=== PATIENT | male | born 1950 | race Caucasian/White ===

== ENCOUNTER 2019-10-05 11:34 | Observation (INO) | payer OTHER ==
--- OUTSIDE RECORDS SUMMARY | 2019-10-05 11:40 | XMS REPORT | Summary of Care ---
:1950 Author Organization [facility] Address [address] [place] [address] Care Team Providers Name Role Phone Kristen Franklin Seth Primary Care Provider Reason for Visit Reason Comments New Patient Establish Care Obstructive Sleep Apnea (Routine) Status Reason Specialty Diagnoses / Referred By Referred To Procedures Contact Contact Closed PN-NEUROLOGY / Diagnoses Other sleep disorders New Sleep Maria Fernanda Payne Strahil Pulmonary Disease Procedures CONSULT/REFERRAL SLEEP CLINIC ADULT PULM NEW SLEEP ASSESSMENT Sia Bernardo [address] [place] [address] Dr RAMIREZ Leonardo [address] [place] [address] Phone: Encounter Details Date Type Department Care Team Description 05/10/2019 Office Visit [facility] Hiren Irving Obstructive sleep Pulmonary Clinic [address] [place] [address] Dr ramsey on CPAP [address] [place] [address] Leonardo Sams 106 (Primary Dx) [address] [place] [address] [place] [phone] [address] [phone] Allergies Active Allergy Reactions Severity Noted Date Comments No Known Drug Allergies Unknown - See comments 09/14/2016 documented as of this encounter (statuses as of 05/10/2019) Medications Medication Sig Dispensed Refills Start Date End Date Status omeprazole Take 20 mg by 0 Active (PRILOSEC) 20 mg mouth daily. capsule tamsulosin (FLOMAX) Take 0.4 mg by 0 Active 0.4 mg 24 hr mouth daily. capsule losartan (COZAAR) Take 50 mg by 0 Active 50 mg tablet mouth daily. metoprolol tartrate Take 25 mg by 0 Active 50 mg tablet mouth 2 (two) times daily. TIOTROPIUM BROMIDE Inhale 2 Puffs 0 Active (SPIRIVA RESPIMAT every 4 (four) INHALE) hours as needed for Other. Cetirizine (ZYRTEC) Take 1 capsule 0 Active 10 mg capsule by mouth 2 (two) times daily. montelukast Take 10 mg by 0 Active (SINGULAIR) 10 mg mouth 2 (two) tablet times daily. CYANOCOBALAMIN/FORTINO Place under 0 Active MAMIDE (B12 SL) the tongue. levalbuterol Inhale 0.5 mL 10 Vial 1 09/15/2016 Active (XOPENEX every 4 (four) CONCENTRATE) 1.25 hours. mg/0.5 mL nebulizer solution finasteride 5 mg Take 5 mg by 0 Active tablet mouth daily. atorvastatin 80 mg Take 80 mg by 0 Active tablet mouth at bedtime. fluticasone Use in each 0 Active propionate 50 nostril daily. mcg/actuation nasal spray primidone Take 50 mg by 0 Discontinued (MYSOLINE) 50 mg mouth 2 (two) 9 tablet times daily. acetaminophen Take 650 mg by 0 Discontinued (TYLENOL) 325 mg mouth every 6 9 tablet (six) hours as needed for Pain (scale 1-3) or Pain (scale 4-6). simvastatin (ZOCOR) Take 40 mg by 0 Discontinued 40 mg tablet mouth at 9 bedtime. BUDESONIDE/FORMOTER Inhale 2 Puffs 0 Discontinued OL FUMARATE 2 (two) times 9 (SYMBICORT INHALE) daily. aspirin 81 mg Take 81 mg by 0 Discontinued chewable tablet mouth daily. 9 ipratropium Inhale 2.5 mL 25 mL 1 09/15/2016 Discontinued (ATROVENT) 0.02 % every 4 (four) 9 nebulizer solution hours as needed for Wheezing or Shortness of Breath. levoFLOXacin Take 1 tablet 5 tablet 0 09/15/2016 Discontinued (LEVAQUIN) 500 mg by mouth every 9 tablet 24 (twenty-four) hours. predniSONE Take 1 tablet 5 tablet 0 09/15/2016 Discontinued (DELTASONE) 50 mg by mouth daily. 9 tablet documented as of this encounter (statuses as of 05/10/2019) Active Problems Problem Noted Date COPD exacerbation 09/15/2016 Obesity (BMI 30-39.9) 09/15/2016 COPD (chronic obstructive pulmonary disease) documented as of this encounter (statuses as of 05/10/2019) Social History Tobacco Use Types Packs/Day Years Used Date Former Smoker Smokeless Tobacco: Never Used Alcohol Use Drinks/Week oz/Week Comments Yes 0 Standard drinks or equivalent 0.0 Sex Assigned at Date Recorded Not on file Job Start Date Occupation Industry Not on file Not on file Not on file Travel History Travel Start Travel End No recent travel history available. documented as of this encounter Last Filed Vital Signs Vital Sign Reading Time Taken Comments Blood Pressure 136/79 05/10/2019 10:45 AM CDT Pulse 54 05/10/2019 10:45 AM CDT Temperature - - Respiratory Rate 19 05/10/2019 10:45 AM CDT Oxygen Saturation 96% 05/10/2019 10:45 AM CDT Inhaled Oxygen Concentration - - Weight 114.4 kg (252 lb 3.2 oz) 05/10/2019 10:45 AM CDT Height 177.8 cm (5' 10") 05/10/2019 10:45 AM CDT Body Mass Index 36.19 05/10/2019 10:45 AM CDT documented in this encounter Progress Notes Hiren Irving - 05/10/2019 10:30 AM CDTReason for Clinic Visit: The patient is currently under Positive Airway Pressure (PAP) treatment forObstructive Sleep Apnea (GERARD). Chief Complaint: Obstructive Sleep Apnea History of Present Illness: The patient usually goes to bed around 9-11 p.m. and wakes up around 8:30-10:30 a.m. It takes 15 minutes on average to fall asleep. During the night, the patient wakes up 2-3 times to go to the restroom. The patient takes occasional naps during the day. These naps usually last 1-3 hours each. The patient does not suffer from irresistible sleep attacks during the day. The patient does not experience sudden loss of muscle tone when emotional or excited. The patient does not report vivid dream-like images and loss of muscle tone when falling asleep and upon awakening. [place] Sleepiness Scale score: 4 (0-24). Social History: The patient does not smoke cigarettes. The patient occasionally drinks alcoholic beverages. Caffeinated beverages consumption: 1-2 per day. Family History: The family history is positive for snoring in blood relatives. Physical Examination: 1) Vital signs: as noted above. 2) General: the patient is pleasant, well developed, and in NAD. 3) Skin: there are no rashes, edema, abnormal pigmentation, or pathological outgrowths. 4) Head: there are no skull or hair deformities, nor pathological facial asymmetry. 5) Eyes: pupils are equal, round, and reactive to light; extraocular movements are intact, conjugate , and unrestricted, without strabismus or nystagmus. 6) ENT: oropharynx reveals low set soft palate and elongateduvula; the patient displays a good sniff through both the right and left nostril. 7) Neck: there areno distended veins or enlarged lymph nodes bilaterally. 8) Back: straight; spine - without pathological curvatures. 9) Bilateral lower extremities are without edema or discoloration. 10) Neurological -patient is alert, oriented to time, place, and self, and answers questions appropriately; there are no cranial nerves abnormalities; upper extremities movements are well coordinated, without dismetria or tremors; the gait is balanced, without ataxia, postural or dynamic abnormalities. Review of Systems: 1)Respiratory: positive for snoring and witnessed apneas; 2)Cardiovascular: positive for hypertension; 3)Endocrine/Metabolic: positive for dyslipidemia; 4) Digestive: negative for abnormalities; 5)Urinary: positive for nocturia; 6) Skeletal: no skeletal abnormalities detected; 7)Muscular: negative for muscular abnormalities; 8)Nervous: no neurological or psychological abnormalities; 9) Integumentary: novisible or reported skin or hair abnormalities; 10)Reproductive : no reproductive abnormalities noted; 11)Immune/Lymphatic/Allergy: positive for respiratory allergies. Sleep Study Results and PAP Compliance: The patient was diagnosed with Obstructive Sleep Apnea Syndrome and placed on Positive Airway Pressure (PAP) treatment at the [place] about 1.5 years ago. The patientcomplains of ill fitting mask which prevents him from using his CPAP machine regularly. Diagnosis: Obstructive Sleep Apnea Syndrome ill fitting CPAP mask G47.33 Recommendations and Patient Education: The condition of Obstructive Sleep Apnea was discussed with the patient and the possible consequences of untreated sleep apnea regarding quality of sleep, daytime alertness, and cardiovascular complications were underlined. All of patients questions were welcomed and thoroughly answered. The patient was encouraged to re-start regular PAP treatment at home. A DME order for better fitting mask was also issued. Additional time was spent discussing sleep hygiene including: regular bedtime and wake-up times; enough sleep hours; going to bed only when sleepy; using bed for the sole purpose of sleeping; avoidanceof: 1) caffeinated and alcoholic beverages, 2) strenuous cognitive activity, or 3) heavy meals in the evening. The patient reported efforts to implement these sleep hygiene measures at home and had some additional questions which were answered in detail. A follow up visit as needed was also recommended. The patient was instructed to contact us in case of any further questions, concerns, problems, or side effects of PAP treatment. documented in this encounter Plan of Treatment Date Type Specialty Care Team Description 08/16/2019 Office Visit Pulmonary Disease Hiren Irving [address] [place] [address] [place] [address] [phone] Health Maintenance Due Date Last Done Comments HEPATITIS C (HCV) SCREEN 1950 DTaP,Tdap,and Td Vaccines (1 - Tdap) 1967 COLONOSCOPY 1998 Zoster Recombinant Vaccine (SHINGRIX) (1 of 2) 1998 LUNG CANCER SCREEN: Recommended for age 55-80 with 30 + 2003 pack year history Medicare Wellness Visit 2013 PNEUMOCOCCAL VACCINES 65+ (1 of 2 - PCV13) 2013 INFLUENZA VACCINE 05/28/2019 documented as of this encounter Results Not on filedocumented in this encounter Visit Diagnoses Diagnosis Obstructive sleep apnea on CPAP - Primary Obstructive sleep apnea (adult) (pediatric) documented in this encounter Insurance Payer Benefit Plan / Subscriber ID Effective Phone Address Type Group Dates [employer] [id number] 2018-Pre HMO/PPO/ ADMINISTRATION ADMINISTRATION sent POS documented as of this encounter
--- OUTSIDE RECORDS SUMMARY | 2019-10-05 11:40 | XMS REPORT | Summary of Care ---
:1950 Author Organization [facility] Address [address] [place] [address] Care Team Providers Name Role Phone Kristen Franklin Seth Primary Care Provider Reason for Visit Reason Comments New Patient Establish Care Obstructive Sleep Apnea (Routine) Status Reason Specialty Diagnoses / Referred By Referred To Procedures Contact Contact Closed PN-NEUROLOGY / Diagnoses Other sleep disorders New Sleep Maria Fernanda Payne Strahil Pulmonary Disease Procedures CONSULT/REFERRAL SLEEP CLINIC ADULT PULM NEW SLEEP ASSESSMENT Sia Bernardo [address] [place] [address] Dr RAMIREZ Leonardo [address] [place] [address] Phone: Encounter Details Date Type Department Care Team Description 05/10/2019 Office Visit [facility] Hiren Irving Obstructive sleep Pulmonary Clinic [address] [place] [address] Dr ramsey on CPAP [address] [place] [address] Leonardo Sams 106 (Primary Dx) [address] [place] [address] [place] [phone] [address] [phone] Allergies Active Allergy Reactions Severity Noted Date [...] tone when falling asleep and upon awakening. [place] Sleepiness Scale score: 4 (0-24). Social History: [...] Positive Airway Pressure (PAP) treatment at the [place] about 1.5 years ago. The patientcomplains of [...] documented in this encounter Plan of Treatment Health Maintenance Due Date Last Done Comments [...] Phone Address Type Group Dates [employer] [id number] 2018-Pre HMO/PPO/ ADMINISTRATION ADMINISTRATION sent POS documented as of this encounter
--- OUTSIDE RECORDS SUMMARY | 2019-10-05 11:40 | XMS REPORT | Summary of Care ---
:1950 [address] [facility] - Health Address [address] [place] [address] Care Team Providers Name Role Phone Kristen Franklin Primary Care Provider Encounter Details Date Type Department Care Team Description 05/10/[address] [facility] Doctor Unassigned, No [address] [facility] [place] [address] [address] [place] [address] Allergies Active Allergy Reactions Severity Noted Date Comments No Known Drug Allergies Unknown - See comments 09/14/2016 documented as of this encounter (statuses as of 05/10/2019) Medications Medication Sig Dispensed Refills Start Date End Date Status omeprazole (PRILOSEC) Take 20 mg by 0 Active 20 mg capsule mouth daily. tamsulosin (FLOMAX) 0.4 Take 0.4 mg by 0 Active mg 24 hr capsule mouth daily. losartan (COZAAR) 50 mg Take 50 mg by 0 Active tablet mouth daily. metoprolol tartrate 50 Take 25 mg by 0 Active mg tablet mouth 2 (two) times daily. TIOTROPIUM BROMIDE Inhale 2 Puffs 0 Active (SPIRIVA RESPIMAT every 4 (four) INHALE) hours as needed for Other. Cetirizine (ZYRTEC) 10 Take 1 capsule by 0 Active mg capsule mouth 2 (two) times daily. montelukast (SINGULAIR) Take 10 mg by 0 Active 10 mg tablet mouth 2 (two) times daily. CYANOCOBALAMIN/COBAMAMI Place under the 0 Active DE (B12 SL) tongue. levalbuterol (XOPENEX Inhale 0.5 mL 10 Vial 1 09/15/2016 Active CONCENTRATE) 1.25 every 4 (four) mg/0.5 mL nebulizer hours. solution finasteride 5 mg tablet Take 5 mg by 0 Active mouth daily. atorvastatin 80 mg Take 80 mg by 0 Active tablet mouth at bedtime. fluticasone propionate Use in each 0 Active 50 mcg/actuation nasal nostril daily. spray documented as of this encounter (statuses as [...] of this encounter Last Filed Vital Signs Not on filedocumented in this encounter Plan of Treatment Date Type Specialty Care Team Description 08/16/2019 Office Visit Pulmonary Disease Hiren Irving [address] Patterson [address] [place] [address] [phone] Health Maintenance Due Date Last Done Comments [...] VACCINE 05/28/2019 documented as of this encounter Procedures Procedure Name Priority Date/Time Associated Diagnosis Comments DME/SUPPLY JUSTIFICATION Routine 05/10/2019 12:01 AM CDT documented in this encounter Results Not on filedocumented in this encounter Insurance Payer Benefit Plan / Subscriber ID Effective Phone Address Type Group Dates [place] [place] [id number] 2015-Pre [phone] Medicare PLUS/SELECTCARE PLUS/SELECTCARE [id number] [phone] [place], [place] [phone] [facility] [id number] 2015-Pre Medicare - MANAGED MEDICARE ADV HMO sent Adv HMO MEDICARE [employer] [id number] 2018-Pr HMO/PPO/PO ADMINISTRATION ADMINISTRATION esent S documented as of this encounter
--- OUTSIDE RECORDS SUMMARY | 2019-10-05 11:40 | XMS REPORT | Summary of Care ---
:1950 Author Organization [facility] Address [address] [place] [address] Care Team Providers Name Role Phone Kristen Franklin Seth Primary Care Provider Reason for Visit Reason Comments New Patient Establish Care Obstructive Sleep Apnea (Routine) Status Reason Specialty Diagnoses / Referred By Referred To Procedures Contact Contact Closed PN-NEUROLOGY / Diagnoses Other sleep disorders New Sleep Maria Fernanda Payne Strahil Pulmonary Disease Procedures CONSULT/REFERRAL SLEEP CLINIC ADULT PULM NEW SLEEP ASSESSMENT Sia Bernardo [address] [place] [address] Dr RAMIREZ Leonardo [address] [place] [address] Phone: Encounter Details Date Type Department Care Team Description 05/10/2019 Office Visit [facility] Hiren Irving Obstructive sleep Pulmonary Clinic [address] [place] [address] Dr ramsey on CPAP [address] [place] [address] Leonardo Sams 106 (Primary Dx) [address] [place] [address] [place] [phone] [address] [phone] Allergies Active Allergy Reactions Severity Noted Date [...] tone when falling asleep and upon awakening. [place] Sleepiness Scale score: 4 (0-24). Social History: [...] Positive Airway Pressure (PAP) treatment at the [place] about 1.5 years ago. The patientcomplains of [...] Phone Address Type Group Dates [employer] [id number] 2018-Pre HMO/PPO/ ADMINISTRATION ADMINISTRATION sent POS documented as of this encounter
--- OUTSIDE RECORDS SUMMARY | 2019-10-05 11:40 | XMS REPORT ---
:1950 Author Organization [facility] Address [address] [place] [address] Dr. Sánchez [address] [place] [address] Care Team Providers Name Role Phone Unavailable Unavailable Unavailable Problems This patient has no known problems. Allergies, Adverse Reactions, Alerts This patient has no known allergies or adverse reactions. Medications This patient has no known medications.
--- NOTE | 2019-10-05 12:16 | RAD REPORT ---
EXAM DESCRIPTION: CT - Head Brain Wo Cont - 10/05/2019 12:05 pm CLINICAL HISTORY: Headache, near syncope COMPARISON: March 2017 TECHNIQUE: Axial 5 mm thick images of the head were obtained without IV contrast. All CT scans are performed using dose optimization technique as appropriate and may include automated exposure control or mA/KV adjustment according to patient size. FINDINGS: No intracranial hemorrhage, mass, edema or shift of mid-line structures. No acute infarcti on changes seen. No cortical edema or sulcal effacement. Atrophy and chronic ischemic changes are pre sent not substantially different from comparison. Since the prior study, the patient has had deep basilia rostimulator wires placed. Ventricles are in proportion to volume loss. Mastoid air cells and visualized portions of the paranasal sinuses are clear. No acute bony findings. IMPRESSION: Negative non-contrast CT head examination for acute finding. Atrophy and chronic ischemic change similar to 2017.
[2019-10-05 12:29] LABS: Absolute Lymphocytes (CBC) 2.6 K/uL (0.7-4.9); Basophils % 0.8 % (0-1.3); Hematocrit 46.8 % (39.6-49.0); Lymphocytes % 38.4 % (15.3-44.8); MPV 7.5 fL (7.6-11.3); RBC Red Blood Cell Count 5.33 M/uL (4.33-5.43)
--- NOTE | 2019-10-05 12:31 | RAD REPORT ---
EXAM DESCRIPTION: RAD - Chest Single View - 10/05/2019 12:10 pm CLINICAL HISTORY: Chest pain and pressure, hypotension COMPARISON: March 2017 TECHNIQUE: AP portable chest image was obtained 1203 hours . FINDINGS: Mild chronic underlying interstitial lung changes are present. Patient has extensive calci fied pleural plaquing and probable calcified lung parenchymal nodules. Pattern is not clearly differe nt. No failure or volume overload. Since prior imaging a neurostimulator battery pack has been placed over the upper left chest. Heart a nd vasculature are normal. No measurable pleural effusion and no pneumothorax. No acute bony abnormal ity seen. No acute aortic findings suspected. IMPRESSION: No acute cardiopulmonary process. Chronic changes are detailed in the body of the report and are similar to the comparison.
[2019-10-05 12:32] LABS: Protime INR 0.94
[2019-10-05 12:49] LABS: ALT/SGPT 33 U/L (12-78); AST/SGOT 23 U/L (15-37); Albumin 3.9 g/dL (3.4-5.0); Alkaline Phosphatase 79 U/L (45-117); BUN Blood Urea Nitrogen 22 mg/dL (7-18); Bicarbonate 26 mmol/L (21-32); Bilirubin Direct 0.1 mg/dL (0-0.2); Bilirubin Total 0.4 mg/dL (0.2-1.0); Glucose Level 105 mg/dL (74-106); Magnesium 2.5 mg/dL (1.8-2.4); NT PRO-BNP 50 pg/mL (<125); Protein, Total 7.7 g/dL (6.4-8.2); Sodium Level 138 mmol/L (136-145); Troponin (Emerg Dept Use Only) < 0.02 ng/mL (0.0-0.045)
[2019-10-05] MEDS ORDERED: NA CHLORIDE 0.9% 500 ML ONE (12:59)
[2019-10-05] MEDS ORDERED: ASPIRIN EC 81 MG TAB PO ONE (13:08)
--- NOTE | 2019-10-05 13:21 | EKG ---
Test Date: 2019-10-05 Test Time: 11:54:50 Pca: ASHLEY MEASUREMENT RESULTS: Intervals: Rate: 67 CA: 116 QRSD: 82 QT: 414 QTc: 437 [place]: P: CA: 116 QRS: 28 T: 7 INTERPRETIVE STATEMENTS: Normal sinus rhythm Junctional ST depression, probably normal Borderline ECG Compared to ECG 04/13/2017 10:36:22 ST (T wave) deviation now present Sinus bradycardia no longer present Electronically Signed On 10-05-19 13:20:45 [employer] MANAGER by Jose G Santiago
--- NOTE | 2019-10-05 13:35 | EDPHYS ---
Physician Documentation [facility] Name: Cruzito Sims Jr Age: 69 yrs Sex: Male : 1950 Arrival Date: 10/05/2019 Time: 11:39 Bed 5 Private MD: ED Physician Balbir López HPI: 10/05 11:49 This 69 yrs old Male presents to ER via EMS with complaints of Chest Pain, cp Blood Pressure Problem. 11:49 The patient or guardian reports chest pain that is located primarily in the substernal cp area. 11:49 Onset: this morning. The pain does not radiate. Associated signs and symptoms: cp Pertinent negatives: abdominal pain, diaphoresis, dizziness, lower extremity pain, lower extremity swelling, palpitations, vomiting. The chest pain is described as a pressure. Duration: The patient or guardian reports a single episode, that is still ongoing, but improving. Historical: - Allergies: 11:47 Codeine; bp - Home Meds: 11:47 metoprolol tartrate 50 mg Oral tab 1 tab 2 times per day [Active]; aspirin 81 mg Oral bp chew 1 tab once daily [Active]; Symbicort inhalation 2 times per day [Active]; atorvastatin 80 mg Oral tab 0.5 tab nightly [Active]; Spiriva with HandiHaler 18 mcg inhalation CpDv 1 cap once daily [Active]; - PMHx: 11:47 Aneurysm; Asthma; Hypertension; COPD; Hyperlipidemia; Hepatitis; bp - Immunization history:: Adult Immunizations up to date. - Social history:: Smoking status: Patient/guardian denies using tobacco. - Ebola Screening: : No symptoms or risks identified at this time. ROS: 12:00 Constitutional: Negative for body aches, chills, fever, poor PO intake. cp 12:00 Eyes: Negative for injury, pain, redness, and discharge. cp 12:00 Cardiovascular: Positive for chest pain, Negative for edema, palpitations. 12:00 Respiratory: Negative for cough, shortness of breath, wheezing. 12:00 Abdomen/GI: Negative for abdominal pain, nausea, vomiting, and diarrhea, black/tarry stool, rectal bleeding. 12:00 Back: Negative for pain at rest, pain with movement, radiated pain. 12:00 Skin: Negative for rash. 12:00 Neuro: Negative for altered mental status, headache, syncope, weakness. 12:00 All other systems are negative. Exam: 12:15 ECG was reviewed by the Attending Physician. cp 12:20 Constitutional: The patient appears in no acute distress, alert, awake, cp non-diaphoretic, non-toxic, well developed, well nourished. 12:20 Head/Face: Normocephalic, atraumatic. cp 12:20 Eyes: Periorbital structures: appear normal, Conjunctiva: normal, no exudate, no injection, Sclera: no appreciated abnormality, Lids and lashes: appear normal, bilaterally. 12:20 ENT: External ear(s): are unremarkable, Nose: is normal, Mouth: is normal, Posterior pharynx: is normal, airway is patent, no erythema, no exudate. 12:20 Neck: ROM/movement: is normal, is supple, without pain, no range of motions limitations, no nuchal rigidity. 12:20 Chest/axilla: Inspection: normal, Palpation: is normal, no crepitus, no tenderness. 12:20 Cardiovascular: Rate: normal, Rhythm: regular, Edema: is not appreciated, JVD: is not appreciated. 12:20 Respiratory: the patient does not display signs of respiratory distress, Respirations: normal, no use of accessory muscles, no retractions, no splinting, no tachypnea, labored breathing, is not present, Breath sounds: are clear throughout, no decreased breath sounds, no stridor, no wheezing. 12:20 Abdomen/GI: Inspection: abdomen appears normal, Palpation: abdomen is soft and non-tender, in all quadrants. 12:20 Back: pain, is absent, ROM is normal. 12:20 Skin: no rash present. 12:20 Neuro: Orientation: to person, place \T\ time. Mentation: is normal, Motor: moves all fours, strength is normal. Vital Signs: 11:52 BP 106 / 78; Pulse 69; Resp 16; Temp 98; Pulse Ox 95% on R/A; Weight 112.49 kg; Height bp 5 ft. 10 in. (177.80 cm); 13:00 BP 94 / 69; Pulse 68; Resp 15; Pulse Ox 97% ; bp 14:55 BP 113 / 98; Pulse 68; Resp 16; Pulse Ox 98% ; bp 15:50 BP 137 / 87; Pulse 81; Resp 16; Temp 98; Pulse Ox 95% ; bp 11:52 Body Mass Index 35.58 (112.49 kg, 177.80 cm) bp MDM: 11:40 Patient medically screened. cp 12:30 Differential diagnosis: abnormal EKG, acute myocardial infarction, acute pericarditis, cp pancreatitis, pulmonary embolus, stable angina, thoracic aortic disection, unstable angina. 13:30 The patient was given aspirin in the Emergency Department. cp 13:30 Data reviewed: vital signs, nurses notes, lab test result(s), EKG, radiologic studies, cp plain films. Test interpretation: by ED physician or midlevel provider: ECG, plain radiologic studies, chest xray negative for infiltrates. Counseling: I had a detailed discussion with the patient and/or guardian regarding: the historical points, exam findings, and any diagnostic results supporting the discharge/admit diagnosis, lab results, radiology results. Response to treatment: the patient's symptoms have mildly improved after treatment, and as a result, I will admit patient. Physician consultation: Gold Barajas MD was called at 13:30, was contacted at 13:30, regarding admission, to the telemetry unit. patient's condition. 10/05 11:40 Order name: Basic Metabolic Panel; Complete Time: 13:02 cp 10/05 13:02 Interpretation: Normal except: BUN 22; CRE 1.52; GFR 45. cp 10/05 11:40 Order name: CBC with Diff; Complete Time: 12:47 cp 10/05 12:47 Interpretation: Normal except: MPV 7.5; EOSINOPHIL % 4.5. cp 10/05 11:40 Order name: LFT's; Complete Time: 13:02 cp 10/05 13:02 Interpretation: Normal except: GLOB 3.8; A/G 1.0. cp 10/05 11:40 Order name: Magnesium; Complete Time: 13:02 cp 10/05 11:40 Order name: NT PRO-BNP; Complete Time: 13:02 cp 10/05 11:40 Order name: PT-INR; Complete Time: 12:47 cp 10/05 12:48 Interpretation: Reviewed. cp 10/05 11:40 Order name: Troponin (emerg Dept Use Only); Complete Time: 13:02 cp 10/05 13:02 Interpretation: Within normal limits. cp 10/05 11:40 Order name: XRAY Chest (1 view); Complete Time: 12:47 cp 10/05 11:40 Order name: EKG; Complete Time: 11:40 cp 10/05 11:40 Order name: CT Head Brain wo Cont; Complete Time: 12:47 cp 10/05 11:51 Order name: Urine Microscopic Only cp 10/05 11:51 Order name: Lactate; Complete Time: 12:47 cp 10/05 11:40 Order name: Cardiac monitoring; Complete Time: 12:00 cp 10/05 11:40 Order name: EKG - Nurse/Tech; Complete Time: 11:55 cp 10/05 11:40 Order name: IV Saline Lock; Complete Time: 12:31 cp 10/05 11:40 Order name: Labs collected and sent; Complete Time: 12:31 cp 10/05 11:40 Order name: O2 Per Protocol; Complete Time: 11:56 cp 10/05 11:40 Order name: O2 Sat Monitoring; Complete Time: 11:56 cp 10/05 14:47 Order name: Diet Regular; Complete Time: 14:47 cp EC:15 Rate is 67 beats/min. Rhythm is regular. UT interval is normal. QRS interval is normal. cp QT interval is normal. Interpreted by me. Reviewed by me. Administered Medications: 12:10 Drug: NS 0.9% 500 ml Route: IV; Rate: bolus; Site: right antecubital; bp 15:56 Follow up: IV Status: Completed infusion; IV Intake: 500ml bp 13:00 Drug: Aspirin Chewable Tablet 324 mg Route: PO; bp 15:56 Follow up: Response: No adverse reaction bp Disposition: 16:41 Co-signature as Attending Physician, Balbir López MD I agree with the assessment and [facility] plan of care. Disposition: 10/05/19 13:34 Hospitalization ordered by Gold Barajas for Observation. Preliminary diagnosis is Chest pain, unspecified. - Bed requested for Telemetry/MedSurg (observation). - Status is Observation. bp - Condition is Stable. - Problem is new. - Symptoms have improved. UTI on Admission? No Signatures: Dispatcher [employer] Balbir Saenz MD MD cha Page, Corey, PA PA cp Chago Gloria, RN RN bp Cuellar, Maria M eb Corrections: (The following items were deleted from the chart) 14:03 13:34 Hospitalization Ordered by Gold Barajas MD for Observation. Preliminary diagnosis eb is Chest pain, unspecified. Bed requested for Telemetry/MedSurg (observation). Status is Observation. Condition is Stable. Problem is new. Symptoms have improved. UTI on Admission? No. cp 15:11 14:03 10/05/2019 13:34 Hospitalization Ordered by Gold Barajas MD for Observation. eb Preliminary diagnosis is Chest pain, unspecified. Bed requested for Telemetry/MedSurg (observation). Status is Observation. Condition is Stable. Problem is new. Symptoms have improved. UTI on Admission? No. eb 16:09 15:11 10/05/2019 13:34 Hospitalization Ordered by Gold Barajas MD for Observation. bp Preliminary diagnosis is Chest pain, unspecified. Bed requested for Telemetry/MedSurg (observation). Status is Observation. Condition is Stable. Problem is new. Symptoms have improved. UTI on Admission? No. eb
--- NOTE | 2019-10-05 13:35 | ER ---
Nurse's Notes [facility] Name: Cruzito Sims Jr Age: 69 yrs Sex: Male : 1950 Arrival Date: 10/05/2019 Time: 11:39 Bed 5 Private MD: Diagnosis: Chest pain, unspecified Presentation: 10/05 11:39 Presenting complaint: EMS states: CHEST PRESSURE AND HYPOTENSION AT [facility]. bp Transition of care: [facility]. Onset of symptoms is unknown. Risk Assessment: Do you want to hurt yourself or someone else? Patient reports no desire to harm self or others. Initial Sepsis Screen: Does the patient meet any 2 criteria? No. Patient's initial sepsis screen is negative. Does the patient have a suspected source of infection? No. Patient's initial sepsis screen is negative. Care prior to arrival: None. 11:39 Method Of Arrival: EMS: [facility] bp 11:39 Acuity: MAURA 2 bp Triage Assessment: 11:47 General: Appears in no apparent distress. uncomfortable, Behavior is cooperative, bp appropriate for age, anxious. Pain: Complains of pain in chest. EENT: No deficits noted. Neuro: No deficits noted. Cardiovascular: Patient's skin is warm and dry. Respiratory: Airway is patent Respiratory effort is even, labored, Respiratory pattern is regular, symmetrical, GI: No signs and/or symptoms were reported involving the gastrointestinal system. : No signs and/or symptoms were reported regarding the genitourinary system. Derm: No deficits noted. Derm: No deficits noted. Musculoskeletal: No deficits noted. Historical: - Allergies: 11:47 Codeine; bp - Home Meds: 11:47 metoprolol tartrate 50 mg Oral tab 1 tab 2 times per day [Active]; aspirin 81 mg Oral bp chew 1 tab once daily [Active]; Symbicort inhalation 2 times per day [Active]; atorvastatin 80 mg Oral tab 0.5 tab nightly [Active]; Spiriva with HandiHaler 18 mcg inhalation CpDv 1 cap once daily [Active]; - PMHx: 11:47 Aneurysm; Asthma; Hypertension; COPD; Hyperlipidemia; Hepatitis; bp - Immunization history:: Adult Immunizations up to date. - Social history:: Smoking status: Patient/guardian denies using tobacco. - Ebola Screening: : No symptoms or risks identified at this time. Screenin:57 Abuse screen: Denies threats or abuse. Denies injuries from another. Nutritional bp screening: No deficits noted. Tuberculosis screening: No symptoms or risk factors identified. Fall Risk None identified. Assessment: 10:50 General: SEE TRIAGE NOTE. bp 10:50 Pain: Pain radiates to back Pain began 1 day ago. bp 12:00 Reassessment: ALL CURRENT ORDERS COMPLETE, RESULTS PENDING. bp 13:00 Reassessment: PROVIDER AT B/S FOR PT RE-EVAL. VS STABLE ON MONITOR. bp 14:56 Reassessment: ADMIT IN PROCESS. PT ASYMPTOMATIC AT THIS TIME. bp Vital Signs: 11:52 BP 106 / 78; Pulse 69; Resp 16; Temp 98; Pulse Ox 95% on R/A; Weight 112.49 kg; Height bp 5 ft. 10 in. (177.80 cm); 13:00 BP 94 / 69; Pulse 68; Resp 15; Pulse Ox 97% ; bp 14:55 BP 113 / 98; Pulse 68; Resp 16; Pulse Ox 98% ; bp 15:50 BP 137 / 87; Pulse 81; Resp 16; Temp 98; Pulse Ox 95% ; bp 11:52 Body Mass Index 35.58 (112.49 kg, 177.80 cm) bp ED Course: 11:39 Patient arrived in ED. bp 11:39 Balbir Garcia PA is PHCP. cp 11:39 Balbir López MD is Attending Physician. cp 11:40 Triage completed. bp 11:52 Arm band placed on. bp 11:54 Chago Gloria, RN is Primary Nurse. bp 11:57 Patient has correct armband on for positive identification. Placed in gown. Bed in low bp position. Call light in reach. Side rails up X2. monitoring specialist on. Pulse ox on. NIBP on. 12:05 CT Head Brain wo Cont In Process Unspecified. EDMS 12:10 XRAY Chest (1 view) In Process Unspecified. EDMS 12:15 Inserted saline lock: 22 gauge in right antecubital area, using aseptic technique. kj1 Blood collected. 12:19 Initial lab(s) drawn, by operations label clerk, sent to lab. kj1 13:34 Gold Barajas MD is Hospitalizing Provider. cp 15:55 No provider procedures requiring assistance completed. Patient admitted, IV remains in bp place. Patient maintains SpO2 saturation greater than 95% on room air. Administered Medications: 12:10 Drug: NS 0.9% 500 ml Route: IV; Rate: bolus; Site: right antecubital; bp 15:56 Follow up: IV Status: Completed infusion; IV Intake: 500ml bp 13:00 Drug: Aspirin Chewable Tablet 324 mg Route: PO; bp 15:56 Follow up: Response: No adverse reaction bp Intake: 15:56 IV: 500ml; Total: 500ml. bp Outcome: 13:34 Decision to Hospitalize by Provider. cp 15:54 Admitted to Tele accompanied by tech, family with patient, via wheelchair, room 428, bp with chart, Report called to JAY JAY NICHOLS 15:54 Condition: stable 15:54 Instructed on the need for admit. 16:09 Patient left the ED. bp Signatures: Dispatcher [employer] EDMS Balbir Garcia PA PA cp Peltier, Brian, RN RN bp Lesly Cruz kj1
[2019-10-05] MEDS ORDERED: NITROGLYCERIN 0.4 MG/TAB SL PRN (16:34)
[2019-10-05] MEDS ORDERED: ACETAMINOPHEN 500 MG TAB PO PRN (16:34)
[2019-10-05] MEDS: NA CHLORIDE 0.9% 1,000 ML IV SCH (18:01)
[2019-10-05] MEDS: ENOXAPARIN 40 MG/0.4 ML SQ SCH (18:02)
[2019-10-05] MEDS ORDERED: FLUOCINONIDE TOP PRN (18:32)
[2019-10-05] MEDS ORDERED: HOME MED 1 EA UNK (Budesonide/Formoterol Fumarate [Symbicort 160-4.5 Mcg Inhaler] 2 PUFF) IH PRN (18:32)
[2019-10-05] MEDS ORDERED: APPL TOP PRN (18:32)
[2019-10-05] MEDS ORDERED: EMOLLIENT BASE TOP PRN (18:32)
[2019-10-05] MEDS: ALBUTEROL 2.5 MG/3 ML NEB SOL NEB SCH (20:00)
[2019-10-05] MEDS ORDERED: DIGOXIN 0.25 MG/ML AMP IV ONE (20:00)
[2019-10-05] MEDS: IPRATROPIUM BROM 0.5MG/2.5ML NEB SCH (20:00)
[2019-10-05] MEDS ORDERED: ATORVASTATIN 40 MG TAB PO SCH (21:00)
[2019-10-05] MEDS ORDERED: METOPROLOL TAR 25 MG TAB PO SCH (21:00)
[2019-10-05] MEDS ORDERED: AZELASTINE NASAL SPRAY 30 ML NAS SCH (21:00)
[2019-10-05] MEDS: FLUTICASONE PROPIONATE IH SCH (21:00)
[2019-10-05] MEDS ORDERED: SOTALOL HCL 80 MG TAB PO ONE (21:09)
[2019-10-05] MEDS: TAMSULOSIN 0.4 MG SR CAP PO SCH (21:20)
--- NOTE | 2019-10-06 00:27 | HP ---
Date of Admission: 10/05/2019 Chief Complaint: Hypotension, chest pressure. Primary Care Physician: KELLY and Dr. Esposito. Consultants: Dr. Santiago with Cardiology. Code Status: Full code. History Of Present Illness: Patient is a 69-year-old male with past medical history of hypertension, COPD, benign prostatic hyperplasia, hyperlipidemia, GERD, history of aortic aneurysm, who was in his usual state of health until night prior to admission when the patient had what he reported as some d iscomfort in his lower chest and abdomen area, felt like gas pressure. Patient ran out of his losart an, took his 's medications who is also on losartan and the following morning took another dose, total of 100 mg within approximately 12 hours. Patient went to his regularly scheduled appointment a t the [facility], he was found to be hypotensive and was referred to the ER for further evaluation. Patient' s blood pressure was 70 systolic at the [facility]. The patient did not have any syncopal type episodes. Hi s chest pressure has improved since last night. No nausea, vomiting, fevers, chills, diaphoresis. N o aggravating factors. Patient's workup revealed negative cardiac enzyme and no ST-elevation on the EKG. Blood pressure continued to remain in the low 90s over 60s. He was given IV fluids 0.5 L bolus and then referred for admission. When seen in the ER, he was awake, alert, and oriented x3, in some mild distress. Past Medical History: Prediabetic, hypertension, COPD, benign prostatic hyperplasia, hyperlipidemia, GERD, aortic aneurysm, being monitored, essential tremor status post stimulator placement, history o f hepatitis. Past Surgical History: Has had stimulator put in for his tremor, has broken multiple bones including shoulder. Allergies: CODEINE. Medications: List reviewed. Social History: Patient quit tobacco use 21 years ago. Does drink alcohol 3-4 drinks per week. Nirmala mckay is , has good social support, is a retired member of the armed forces. Family History: Father had cancer. Grandfather had heart disease. No premature MIs. Review of Systems: Ten-point systems reviewed, negative except as per HPI. Physical Examination: Vital Signs: Blood pressure 94/69, pulse 68, respirations 15, O2 97% on room air, temperature 98, BM I 35. General: Awake, alert, oriented x3. Elderly male, in some mild distress, obese. HEENT: Normocephalic, atraumatic. PERRLA, EOMI. Moist mucous membranes. Oropharynx is clear. Nor mal dentition. Conjunctivae anicteric. Neck: Supple. No JVD. Trachea midline. CV: S1, S2. Regular rate and rhythm. Peripheral pulses present. Respiratory: Moving air well bilaterally. No wheezing or stridor. No use of accessory muscles. Gastrointestinal: Abdomen is soft, nontender, nondistended. Positive bowel sounds. No guarding or rigidity. Extremities: No clubbing or cyanosis. Patient has trace pedal edema. No calf tenderness. Neuro: Cranial nerves 2 through 12 intact grossly. No focal neurological deficits. Speech is dwayne l. Skin: No rashes. Normal skin turgor. Psych: Mood is okay. Affect is full. Insight and judgment are good. Laboratory Data: Sodium 138, potassium 4, chloride 105, CO2 26, BUN 22, creatinine 1.52. Glucose 10 5, lactate 1.8, calcium 9.6, magnesium 2.5. Troponin less than 0.02. INR 0.94. WBC 6.7, H and H 15 .4, 46.8, platelets 270, neutrophils 46%. Imaging Studies: Chest x-ray personally reviewed shows no acute cardiopulmonary process. Patient judd s neurostimulator battery pack placed over the upper left chest. Mild chronic underlying interstitia l lung changes. Patient has lung parenchymal nodules, not different from previous. CT scan of the h ead personally reviewed shows no acute findings. Patient has deep neurostimulator wires placed. Assessment And Plan: 69-year-old male with; 1.Chest pain, rule out acute coronary syndrome, likely related to acute hypotension versus acute cor onary syndrome. Consult Cardiology. Obtain serial cardiac enzymes and echocardiogram. We will plac e on chest pain guidelines. We will hold lisinopril due to low blood pressure. We will give home do se of metoprolol if blood pressure is above 110. 2.Acute hypotension, likely due to medication side effect. Patient took 100 mg of losartan within 1 2 hours. We will continue with IV fluids. We will monitor. 3.Chronic obstructive pulmonary disease, chronic bronchitis. Chest x-ray shows several chronic cummings ges. We will continue with nebulizer treatments. 4.History of aortic aneurysm, is being monitored at the [facility]. 5.Benign prostatic hyperplasia. Continue home medications as appropriate. 6.Mixed hyperlipidemia. Continue statin. 7.Gastroesophageal reflux disease. Continue PPI without esophagitis. 8.History of essential tremor with neurostimulator in place. 9.Calcified lung parenchymal nodules. Chest x-ray is not significantly different from previous. Wo uld recommend continued followup. Patient does see pulmonology as an outpatient. Plan to admit the patient to Med-Surg, place as observation. ARIELLA Voice ID: [id number]
[2019-10-06] MEDS: IPRATROPIUM BROM 0.5MG/2.5ML NEB SCH ×3 (01:05→13:01)
[2019-10-06] MEDS: ALBUTEROL 2.5 MG/3 ML NEB SOL NEB SCH ×3 (01:05→13:01)
[2019-10-06] MEDS: SOTALOL HCL 80 MG TAB PO SCH ×2 (06:00→12:04)
[2019-10-06 06:01] LABS: Absolute Lymphocytes (CBC) 2.6 K/uL (0.7-4.9); Basophils % 0.8 % (0-1.3); Hematocrit 47.1 % (39.6-49.0); Lymphocytes % 37.7 % (15.3-44.8); MPV 7.7 fL (7.6-11.3); RBC Red Blood Cell Count 5.39 M/uL (4.33-5.43)
[2019-10-06 06:24] LABS: Potassium 4.5 mmol/L (3.5-5.1)
[2019-10-06 06:36] VITALS: BMI 35.6
[2019-10-06] MEDS: NA CHLORIDE 0.9% 1,000 ML IV SCH (06:48)
[2019-10-06] MEDS ORDERED: REGADENOSON 0.4 MG/5 ML SYR IV ONE (08:08)
[2019-10-06] MEDS: ENOXAPARIN 40 MG/0.4 ML SQ SCH (09:00)
[2019-10-06] MEDS: FLUTICASONE PROPIONATE IH SCH (09:00)
[2019-10-06] MEDS ORDERED: ASPIRIN EC 81 MG TAB PO SCH (09:00)
[2019-10-06] MEDS ORDERED: FINASTERIDE 5 MG TAB PO SCH (09:00)
[2019-10-06] MEDS ORDERED: CETIRIZINE HCL 5 MG TABLET PO SCH (09:00)
[2019-10-06] MEDS ORDERED: SOTALOL HCL 80 MG TAB ONE (09:02)
[2019-10-06] MEDS ORDERED: CETIRIZINE HCL 5 MG TABLET ONE (09:02)
[2019-10-06] MEDS ORDERED: TAMSULOSIN 0.4 MG SR CAP ONE (09:02)
[2019-10-06] MEDS ORDERED: FINASTERIDE 5 MG TAB ONE (09:03)
[2019-10-06] MEDS ORDERED: ASPIRIN EC 81 MG TAB PO ONE (09:03)
[2019-10-06] MEDS ORDERED: ENOXAPARIN 40 MG/0.4 ML SQ ONE (09:03)
[2019-10-06] MEDS: TAMSULOSIN 0.4 MG SR CAP PO SCH (09:35)
--- NOTE | 2019-10-06 10:02 | ECHO ---
HEIGHT: 5 ft 10 in WEIGHT: 248 lb 0 oz DATE OF STUDY: 10/06/[address]: Gold Barajas MD 2-DIMENSIONAL: YES M.MODE: YES DOPPLER: YES COLOR FLOW: YES TDS: YES PORTABLE: NO DEFINITY: NO BUBBLE STUDY: NO DIAGNOSIS: CHEST PAIN CARDIAC HISTORY: CATHERIZATION: NO SURGERY: NO PROSTHETIC VALVE: NO PACEMAKER: NO MEASUREMENTS (cm) DIASTOLIC (NORMALS) SYSTOLIC (NORMALS) IVSd 1.0 (0.6-1.2) LA Diam 3.1 (1.9-4.0) LVEF 57% LVIDd 4.3 (3.5-5.7) LVIDs 3.0 (2.0-3.5) %FS 30% LVPWd 1.1 (0.6-1.2) Ao Diam 3.4 (2.0-3.7) 2 DIMENSIONAL ASSESSMENT: RIGHT ATRIUM: NORMAL LEFT ATRIUM: NORMAL RIGHT VENTRICLE: NORMAL LEFT VENTRICLE: NORMAL TRICUSPID VALVE: NORMAL MITRAL VALVE: NORMAL PULMONIC VALVE: NORMAL AORTIC VALVE: NORMAL PERICARDIAL EFFUSION: NONE AORTIC ROOT: NORMAL LEFT VENTRICULAR WALL MOTION: NORMAL DOPPLER/COLOR FLOW: NORMAL COMMENTS: NORMAL 2D ECHOCARDIOGRAM WITH DOPPLER. TECHNOLOGIST: Selvin COLBERT
--- NOTE | 2019-10-06 10:03 | CON ---
Mr. Sims is 69. He went to the [place] because he was feeling lightheaded and weak, and he was found to h ave a low blood pressure. He apparently was in sinus rhythm at the time, but overnight went into [facility] b. He was given a dose of Betapace and is in sinus rhythm now. The patient has a history of hyperte nsion and dyslipidemia. He has never had myocardial infarction, stroke, or any other vascular surger y. He gave up smoking a long time ago, but did smoke until he was in his 30s. There is no prior his tory of myocardial infarction, stroke, heart surgery. No prior history of atrial fib. Does not have any bleeding trouble. Outpatient Medications: Had been albuterol, omeprazole, metoprolol, budesonide, fluocinolone, azelas berenice, atorvastatin, multivitamin, Flomax, losartan, fluticasone, finasteride, cyanocobalamin, and cet irizine. Physical Examination: General: He is 5 feet 10 inches, 248 pounds. Alert, oriented, pleasant, not in distress. Lungs: Clear. Heart: Within normal limits. Abdomen: Soft. Extremities: No cyanosis, clubbing, or edema. Distal pulses are diminished but palpable. The patient has been scheduled for a pharmacologic stress test and an echo. I will stop those, but I think the patient should go home on Eliquis 5 mg b.i.d. and Betapace 80 mg twice a day. We instruct ed to stop his losartan and metoprolol that he took before coming to the hospital. He can have followup at the [place] or have followup in my office if he wishes. JENARO/VANESSA Voice ID: [id number] Report ID: [id number]
--- NOTE | 2019-10-06 12:18 | EKG ---
Test Date: 2019-10-06 Test Time: 06:36:11 Software Test Automation Engineer: RT MEASUREMENT RESULTS: Intervals: Rate: 69 TX: 134 QRSD: 76 QT: 402 QTc: 430 [place]: P: -11 TX: 134 QRS: 38 T: 4 INTERPRETIVE STATEMENTS: Normal sinus rhythm Normal ECG Compared to ECG 10/05/2019 20:02:10 Atrial fibrillation no longer present Electronically Signed On 10-06-19 12:17:08 KIER HAND by Dallas Bingham
--- NOTE | 2019-10-06 12:19 | RAD REPORT ---
EXAM DESCRIPTION: NM - Rest Stress Cardiac Imaging - 10/06/2019 12:01 pm CLINICAL HISTORY: Chest pain COMPARISON: None. TECHNIQUE: The patient was administered 10.5 mCi of Tc 99m Sestamibi prior to resting SPECT imaging of the heart. The patient was then administered 30.8 mCi of Tc 99m Sestamibi following exercise or ph armacologic stress. Multiplanar SPECT images were reviewed. FINDINGS: Ventricular volumes and ejection fraction could not be calculated. The patient's deep brai n stimulator system affected the EKG in a manner that precluded gating necessary for volume and EF ca lculations. Stress imaging shows diminished activity along the inferior wall mid and apex portion. Activity is no rmal on the rest sequencing. Diminished activity at the apex does not change between rest and stress imaging. IMPRESSION: Diminished stress activity along the inferior wall mid in apex portion is suspicious for stress-induced ischemia. No other perfusion abnormalities seen. The inferior wall activity is potentially artifact from the diaphragm. Correlation is needed with any EKG abnormalities. Ventricular volumes and ejection fraction values could not be calculated due to technical factors cau sed by the patient's deep brain stimulator system.
--- NOTE | 2019-10-06 12:21 | EKG ---
Test Date: 2019-10-05 Test Time: 20:02:10 Banquet Cook: RT MEASUREMENT RESULTS: Intervals: Rate: 127 [place]: QRSD: 70 QT: 306 QTc: 444 [place]: P: [place]: QRS: 37 T: 4 INTERPRETIVE STATEMENTS: Atrial fibrillation with rapid ventricular response Nonspecific ST and T wave abnormality, probably digitalis effect Abnormal ECG Compared to ECG 10/05/2019 11:54:50 Sinus rhythm no longer present ST (T wave) deviation still present Electronically Signed On 10-06-19 12:20:29 AUTO MACHINIST by Dallas Bingham
--- NOTE | 2019-10-06 13:50 | TREADPHA ---
DX: CHEST PAIN Date of Study: 10/06/2019 Ht: 5 10 Wt: 248 lb 0 oz Consulting Physician: JAQUAN MEDICATIONS: TYLENOL, PROVENTIL, ASPIRIN, LIPITOR, PROSCAR, BETAPACE, FLOMAX HISTORY: 69 YEAR OLD MALE WITH CHEST PAIN. HISTORY OF HYPERTENSION, COPD, HYPERLIPIDEMIA, HEPATITIS, ANEURYSM, ASTHMA, NON SMOKER AND OCCASIONAL DRINKER. PHYSICIAL EXAMINATION: RESTING B.P.: 110/84 RESTING H.R.: 65 RESTING EKG: SINUS, NON SPECIFIC T WAVE PROTOCOL: LEXISCAN EXERCISE TIME: 3:30 B.P. AT PEAK STRESS: 134/82 IMPRESSION: : LEXISCAN INJECTED, FOLLOWED BY CARDIOLITE PER PROTOCOL. SEE NUCLEAR MEDICINE REPORT. NO SUPRAVENTRICULAR TACHYCARDIA, VENTRICULAR TACHYCARDIA, PREMATURE VENTRICULAR COMPLEXES OR PREMATURE ATRIAL COMPLEXES NOTED. PATIENT REPORTED NO CHEST PAIN. NON DIAGNOSTIC EKG WITH LEXISCAN STRESS TEST.
[2019-10-06 16:10] VITALS: O2SAT 96
[2019-10-06 16:50] VITALS: BP 122/81; TEMP 96.9
[2019-10-06] MEDS ORDERED: APIXABAN 5 MG TABLET PO SCH (21:00)
[2019-10-06] MEDS ORDERED: AZELASTINE NASAL SPRAY 30 ML NAS SCH (21:00)
[2019-10-06] MEDS ORDERED: PANTOPRAZOLE 40MG TABLET PO SCH (21:00)
--- NOTE | 2019-10-07 01:32 | DS ---
Date of Discharge: 10/06/2019 Consultants: Dr. Bingham with Cardiology. Procedures: On 10/06/2019, cardiac stress test. Discharge Diagnoses: 1.Chest pain, acute coronary syndrome ruled out. 2.Acute hypotension, likely due to medication side effect. 3.Chronic obstructive pulmonary disease, chronic bronchitis. 4.History of aortic aneurysm, stable. 5.Benign prostatic hyperplasia, stable. 6.Mixed hyperlipidemia, on statin. 7.Atrial fibrillation, paroxysmal, now on sotalol and Eliquis. 8.History of essential tremor with neurostimulator in place. 9.Calcified lung parenchymal nodules. Patient follows with [facility] as outpatient [facility]. 10.Obesity, BMI 35.6. Hospital Course: Patient is a 69-year-old male with past medical history of hypertension, COPD, abdo akua aortic aneurysm, which is being monitored at the [facility] with serial ultrasounds, mixed hyperlipidem ia, tremor with the stimulator in place, comes in with acute hypotension found on his visit to the [facility] for a routine visit. Patient had inadvertently taken double the dose of his losartan 12 hours apart as he had run out and needed his 's losartan and took 's losartan. Patient's blood pressure was as low as 70 systolic at the [facility]. He also has some chest pain. He was admitted to the hospital for further evaluation. His workup revealed no EKG changes without any ST elevation. His cardiac en zymes were negative. Triglycerides were elevated and his HDL cholesterol was low. He was counseled regarding diet and exercise. The patient's kidney function remained stable, slightly elevated at 1.5 . Patient had a cardiac stress test done, which Dr. Santiago had recommended. On the day of admissio n did show some diminished stress activity along the inferior wall, mainly in apex portion, suspiciou s for stress-induced ischemia. No other perfusion abnormalities seen. Inferior wall activity is pot entially artifact from the diaphragm. Correlation is needed with any EKG abnormalities. Ventricular volumes and ejection fraction values could not be calculated due to the technical factors caused by the patient's deep brain stimulator system. His echocardiogram showed an ejection fraction of 57%. The patient was seen by Dr. Bingham, Cardiology. Overnight, the patient had gone into atrial fibrilla tion. He was started on Betapace 80 mg b.i.d. and Eliquis 5 mg b.i.d. The patient was instructed to stop his losartan and metoprolol due to his hypotension. Patient will now be on sotalol. Overall, patient did well. His pain resolved. He was then cleared for discharge. He was sent home in a stab le condition. Medications: As per medication reconciliation list. Followup: Follow up with primary care physician at the [facility] in 2-3 days. Follow up with primary cardi ologist at the [facility] in 2 weeks. Follow up with carroting machine operator at the [facility] for lung parenchymal nodules. Return to ER for worsening condition. Diet: Heart healthy. Activity: As tolerated. Physical Examination: General: Awake, alert, and oriented x3 elderly obese male. CV: S1, S2. Respiratory: Moving air well bilaterally. Abdomen: Soft, nontender, nondistended. Positive bowel sounds. Extremities: No clubbing, cyanosis, edema. Neurologic: Nonfocal. SA/MODL Voice ID: [id number] Report ID: [id number]
== END 2019-10-06 17:13 | disposition home or self-care (01) ==
LOC: ER 11:34 → ERHOLD 14:13 → 4TH 15:55
PROVIDERS: ADMIT Family Medicine; ATTEND Family Medicine
DX: R07.9 Chest pain, unspecified (principal); I95.9 Hypotension, unspecified; J44.9 Chronic obstructive pulmonary disease, unspecified; N40.0 Benign prostatic hyperplasia without lower urinary tract symptoms; E78.2 Mixed hyperlipidemia; I48.0 Paroxysmal atrial fibrillation; R91.8 Other nonspecific abnormal finding of lung field; G25.0 Essential tremor; E66.9 Obesity, unspecified; Z68.35 Body mass index [BMI] 35.0-35.9, adult; I71.4 Abdominal aortic aneurysm, without rupture; Z96.82 Presence of neurostimulator
CPT/HCPCS: 96361; 93005 ×3; 93017; 93306; 85025 ×2; 80048 ×2; 36415; 83735; 85610; 80061; 80076; 83605; 84484 ×3; 83880; 70450; 71045; 94640; 94760 ×4; 78452; 96360; 99285; J1160; J1650; J2785; J7040; J7030; A9500; G0378 ×3

== ENCOUNTER 2020-06-25 16:13 | Emergency (ER) | payer OTHER ==
--- OUTSIDE RECORDS SUMMARY | 2020-06-25 16:15 | XMS REPORT | Continuity of Care Document ---
:1950 Author Organization [facility] Address [facility]3 Chris Sánchez [address] [place] [id number] Care Team Providers Name Role Phone Tova Irving Attending Clinician Doctor Unassigned, Name Attending Clinician Unavailable Problems Condition Condition Condition Status Onset Resolution Last Treating Co mments Source Name Details Category Date Date Treatment Clinician Date Atrial Atrial Problem Active [facility] fibrillati Fibrillati 05-27 Fa margoth on on 00:00: Practic 00 e Chronic Chronic Problem Active [facility] obstructiv Obstructiv 05-27 Fa margoth e lung e Lung 00:00: Practic disease Disease 00 e Gastroesop Gastroesop Problem Active [facility] h[facility] hageal 05-27 Family reflux Reflux 00:00: Practic disease Disease 00 e without without esophagiti Esophagiti s s Benign Benign Problem Active [facility] prostatic Prostatic 05-27 Fami ly hyperplasi Hyperplasi 00:00: Pr actic a a 00 e Plantar Plantar Problem Active [facility] fasciitis Fasciitis 05-27 Fami ly 00:00: Practic 00 e Allergies, Adverse Reactions, Alerts This patient has no known allergies or adverse reactions. Social History Smoking Status Start Date Stop Date Source Former [facility]oker [facility] Medications Ordered Filled Start Stop Current Ordering Indication Dosage Frequency Signature Comments Components Source Medication Medication Date Date Medication? Clinician (SIG) Name Name albuterol albuterol No 3mL TID albuterol [facility] sulfate sulfate sulfate Family 1.25 mg/3 1.25 mg/3 1.25 mg/3 Practic mL solution mL solution mL e for for solution nebulizatio nebulizatio for n Inhale 3 n Inhale 3 nebulizati mL 3 times mL 3 times on Inhale a day by a day by 3 mL 3 inhalation inhalation times a route. route. day by inhalation route. atorvastati atorvastati No 1 Q1D atorvastat [facility] n 40 mg n 40 mg in 40 mg Famil y tablet Take tablet Take tablet Practic 1 tablet 1 tablet Take 1 e every day every day tablet by oral by oral every day route. route. by oral route. budesonide budesonide No 2mL BID budesonide [facility] 0.25 mg/2 0.25 mg/2 0.25 mg/2 Family mL mL mL Pract[facility] suspension suspension suspension e for for for nebulizatio nebulizatio nebulizati n Inhale 2 n Inhale 2 on Inhale mL twice a mL twice a 2 mL twice day by day by a day by nebulizatio nebulizatio nebulizati n route. n route. on route. cyanocobala cyanocobala No 1 cyanocobal [facility] min (vit min (vit malhotra (vit Fa margoth B-12) 1,000 B-12) 1,000 B-12) [facility] mcg tablet mcg tablet 1,000 mcg e Take 1 Take 1 tablet tablet by tablet by Take 1 oral route. oral route. tablet by oral route. Eliquis 5 Eliquis 5 No 1 BID Eliquis 5 [facility] mg tablet mg tablet mg tablet Family Take 1 Take 1 Take 1 Practic tablet tablet tablet e twice a day twice a day twice a by oral by oral day by route. route. oral route. finasteride finasteride No 1 Q1D finasterid [facility] 5 mg tablet 5 mg tablet e 5 mg Family Take 1 Take 1 tablet Practic tablet tablet Take 1 e every day every day tablet by oral by oral every day route. route. by oral route. Flonase 50 Flonase 50 No 1spray( Q1D Flonase 50 [facility] mcg/actuati mcg/actuati s) mcg/actuat Family on nasal on nasal ion nasal Pr actic spray,suspe spray,suspe spray,susp e nsion [place] nsion [facility] ension 1 spray 1 spray [place] 1 every day every day spray by by every day intranasal intranasal by route. route. intranasal route. magnesium magnesium magnesium [facility] gluconate gluconate gluconate Family Practic e omeprazole omeprazole No 1capsul Q1D omeprazole [facility] 20 mg 20 mg e(s) 20 mg Family capsule,del capsule,del capsule,de Practic ayed ayed layed e release release release Take 1 Take 1 Take 1 capsule capsule capsule every day every day every day by oral by oral by oral route. route. route. potassium potassium No 1 potassium [facility] gluconate gluconate gluconate [facility] 1,000 mg 1,000 mg 1,000 mg Pra ctic (167 mg) (167 mg) (167 mg) e tablet Take tablet Take tablet 1 tablet by 1 tablet by Take 1 oral route. oral route. tablet by oral route. sotalol 80 sotalol 80 No 1 BID sotalol 80 [facility] mg tablet mg tablet mg tablet Family Take 1 Take 1 Take 1 Practic tablet tablet tablet e twice a day twice a day twice a by oral by oral day by route. route. oral route. Super B Super B No Super B [facility] 1 Complex 1 Complex 1 Practic tab tab tab e tamsulosin tamsulosin 1capsul Q1D tamsulosin [facility] 0.4 mg 0.4 mg e(s) 0.4 mg Family capsule capsule capsule Practi c Take 1 Take 1 Take 1 e capsule capsule capsule every day every day every day by oral by oral by oral route. route. route. Vital Signs Vital Name Observation Time Observation Value Comments Source Height 2020-05-27 00:00:00 70 [in_i] [facility] BMI (Body Mass 2020-05-27 00:00:00 35.2 kg/m2 [facility] Index) Practice Body Weight 2020-05-27 00:00:00 245 [lb_av] [facility] Procedures Procedure Date / Time Performed Performing Clinician Sol Carpal Tunnel Surgery [facility] Deep Brain Stimulation [facility] Plan of Care Planned Activity Planned Date Details Comments Source Future Appointment 2020-08-28 00:00:00 Beckie cortez [facility] Allan, [address]; [address], [place] [address] Instructions [facility] Encounters Start End Encounter Admission Attending Care Care Encounter Source Date/Time Date/Time Type Type Clinicians Facility Department ID 2020-05-27 2020-05-27 Beckie [facility] [place] - [id number] [facility] 00:00:00 00:00:00 Julissa [facility] noemí o, CHAMPAG[employer] MAKER: Medical - Practi c [email or web address] e [facility], [address], [place] [address] , Ph. 2019-05-10 2019-05-10 Office Maria Fernanda [facility] [id number] 10:39:34 11:10:07 Visit Hiren Eric [id number] [place] [id number] Profmackenzie [id number] [address] 2019-05-10 2019-05-10 Orders Doctor NILAM [id number] 00:00:00 00:00:00 Only Unassigned, YAMILA [id number] [place] [facility] [id number] Results This patient has no known results.
--- OUTSIDE RECORDS SUMMARY | 2020-06-25 16:15 | XMS REPORT | Encounter Summary ---
:1950 Author Care Team Providers Name Role Phone Dr. Vasu Esposito Primary Care Provider [phone] Reason for Visit TELE-AWV Annual Wellness Visit Male Instructions 1. Advance directive discussed w ith patient advance care planning: car e instructions 2. Depression screening learning about depression 3. Atrial fibrillation 4. Benign prostatic hyperplasia 5. Chronic obstructive lung dise ase 6. Plantar fasciitis 7. Gastroesophageal reflux disea se without esophagitis Discussion Note Patient denies any acute issues at this time. Patient encougraged to continue with treatment plans as directed. Tangela t advice to notify his pcp for any continue cough, sob and fever. Patient verbalized understanding. Plan of Care Patient Instructions It was good to speak with you rogelio delaney today for your Medicare Annual Wellness Visit. You have been provided some information on healthy nutrition, including a diet rich in fruits and vegetables, minimizing simple carbohydrates, salt, and saturated fats. I want to encourage regular card iovascular exercise such as walking at [place] 30 minutes daily, 5 times per week. Please remember to schedule any prevent lorenzo health measures that we talked about today. You have also been provided education on fall prevention and community- based lifestyle interventions to help reduc e health risks and promote healthy livin g in your Annual Wellness folder. Screening Recommendations 1. Vaccines Pneumonia: Recommended toda y Influenza: Recommended today 2. Colorectal Cancer Screening: Colonoscopy (every 10 years) Recommended today 3. Annual Prostate Screening 4. Annual Depression Sc reening 5. Annual Alcohol Screening 6. A nnual Fall Risk Screening 7. Annual Health Risk Assessment Reminders Provider Appointments Home on or around Beckie 08/28/2020 CL[facility] None recorded. Referral None recorded. Procedures None recorded. Surgeries None recorded. Imaging None recorded. Medications Name Start Date albuterol sulfate 1.25 mg/3 mL solution for nebulizati on Inhale 3 mL 3 times a day by inhalation route. atorvastatin 40 mg tablet Take 1 tablet every day by oral route. budesonide 0.25 mg/2 mL suspension for nebulization Inhale 2 mL twice a day by nebulization route. cyanocobalamin (vit B-12) 1,000 mcg tablet Take 1 tablet by oral route. Eliquis 5 mg tablet Take 1 tablet twice a day by oral route. finasteride 5 mg tablet Take 1 tablet every day by oral route. Flonase 50 mcg/actuation nasal spray,suspension [place] 1 spray every day by intranasal route. magnesium gluconate omeprazole 20 mg capsule,delayed release Take 1 capsule every day by oral route. potassium gluconate 1,000 mg (167 mg) tablet Take 1 tablet by oral route. sotalol 80 mg tablet Take 1 tablet twice a day by oral route. Super B Maxi Complex 1 tab tamsulosin 0.4 mg capsule Take 1 capsule every day by oral route. Medications Administered None recorded. Vitals Height Weight BMI 5 ft 10 in 245 lbs 35.2 kg/m2 Results Lab Results None recorded. Allergies Code Code System Name Reaction Severity Status Onset NKDA Problems Name Status Onset Date Source Atrial Fibrillation Active 05/27/2020 Chronic Obstructive Lung Disease Active 05/27/2020 Gastroesophageal Reflux Disease without Active 05/27/20 20 Esophagitis Benign Prostatic Hyperplasia Active 05/27/2020 Plantar Fasciitis Active 05/27/2020 Procedures Date Name Performed by Carpal Tunnel Surgery Information not av ailable Deep Brain Stimulation Information not a vailable Vaccine List None recorded. Social History Tobacco Smoking Status Former Smoker (1 PPW) Past Encounters 05/27/2020 Advance Directive Discussed with Patient ; Depression Screening; Atrial Fibrillation; Benign Prostatic Hyperplasia; Chronic Obstructive Lung Disease; Plantar Fasciitis; Gastroesophageal Reflux Disease without Esophagitis Beckie Lemus, LOAN AUDITOR: [address] [facility], [address], [place] [address], Ph. History of Present Illness Mini Cog Reported By: Patient Functional Ability: Personal/Social/ Draw a cloc k and write in the numbers in the correct place, and set the t ceferino to 10 minutes after 11 o'clock was completed correctly? Yes , 3 word recall: Your nurse or doctor will ask you to remember 3 w ords. In 5 minutes, they will ask you to repeat them. Patien t recalled 3 words Opioid Use Assessment Reported By: Patient Opioid Use Assessment:: Current Use of Opioids : no use of opioids (no further questions required) Note: I confirm that I received verbal consent from the patient for the virtual visit.
This telemedicine encounter was performed using live {{video and audio*|audio only because either patient did not have technology or unable to connect due to technical problems}}.
<strong>(for audio only)</strong> Total time spent with patient: {{45#| }} minutes. Review of Systems Comprehensive General Adult ROS Reported By: Patient Constitutional: Constitutional: no fever, no night sweats, no significant weight gain, no significant weight loss, no exercise intolerance Eyes: Eyes: no dry eyes, no vision change, no irritation ENMT: Ears: no difficulty hearing, no ear pain. Nose: no frequent nosebleeds, no nose problems , no sinus problems. Mouth/Throat: no sore throat, no bleeding gums, no snoring, no dry mouth, no mouth ulcers, no oral abnorm alities, no teeth problems Cardiovascular: Cardiovascular: no chest ekaterina n, no arm pain on exertion, no shortness of breath when wal jamey, no shortness of breath when lying down, no palpitations, no known heart murmur, no lightheadedness Respiratory: Respiratory: no cough, no wh eezing, no shortness of breath, no coughing up blood, no sleep apnea Gastrointestinal: Gastrointestinal: no abdomin al pain, no nausea, no vomiting, no constipation, normal appe tite, no diarrhea, not vomiting blood, no dyspepsia, no GERD Genitourinary: Genitourinary: no incontinen ce, no difficulty urinating, no hematuria, no increased freq uency Musculoskeletal: Musculoskeletal: no muscle a ches, no muscle weakness, no back pain, no swelling in the ext remities Integumentary: Skin: no abnormal mole, no j aundice, no rashes, no laceration Neurologic: Neurologic: no loss of consc iousness, no weakness, no numbness, no seizures, no di zziness, no migraines, no headaches, no tremor Psychiatric: Psych: no depression, no sle ep disturbances, feeling safe in a relationship, no alcohol abu se, no anxiety, no hallucinations, no suicidal thoughts Endocrine: Endocrine: no fatigue Hematologic/Lymphatic: Hematologic/Lymphatic no swo llen glands, no bruising, no excessive bleeding Allergic/Immunologic: Allergy/Immunologic: no runn y nose, no sinus pressure, no itching, no hives, no freque nt sneezing Physical Exam Telemedicine/Virtual Visit Reported By: Patient Constitutional: General Appearance: healthy- appearing, well-nourished, well-developed. Level of Dis tress: NAD. Ambulation: ambulating normally Psychiatric: Insight: good judgement. Men rachael Status: active and alert, normal mood, normal affect. Orienta tion: to time, to place, to person. Memory: recent memory normal , remote memory normal"
[2020-06-25] MEDS ORDERED: ONDANSETRON 4 MG/2 ML VIAL ONE (16:50)
[2020-06-25] MEDS ORDERED: FENTANYL CITR 100 MCG/2 ML ONE (17:00)
--- NOTE | 2020-06-25 17:08 | RAD REPORT ---
EXAM DESCRIPTION: RAD - Chest Single View - 06/25/2020 5:01 pm CLINICAL HISTORY: lower chest/epigastric pain Chest pain. COMPARISON: Chest Single View dated 10/05/2019; Chest Single View dated 04/13/2017 FINDINGS: Portable technique limits examination quality. The lungs are grossly clear. The heart is normal in size. Calcified pleural plaques are present bilat erally. IMPRESSION: No acute intrathoracic process suspected.
[2020-06-25 17:10] LABS: Absolute Lymphocytes (CBC) 2.5 K/uL (0.7-4.9); Basophils % 0.8 % (0-1.3); Hematocrit 41.7 % (39.6-49.0); Lymphocytes % 35.9 % (15.3-44.8); MPV 7.3 fL (7.6-11.3); Protime INR 1.28
[2020-06-25 17:23] LABS: ALT/SGPT 30 U/L (12-78); AST/SGOT 23 U/L (15-37); Albumin 3.5 g/dL (3.4-5.0); Alkaline Phosphatase 75 U/L (45-117); BUN Blood Urea Nitrogen 13 mg/dL (7-18); Bicarbonate 26 mmol/L (21-32); Bilirubin Direct 0.1 mg/dL (0-0.2); Bilirubin Total 0.4 mg/dL (0.2-1.0); Glucose Level 85 mg/dL (74-106); Lipase 70 U/L (73-393); Magnesium 2.2 mg/dL (1.8-2.4); NT PRO-BNP 57 pg/mL (<125); Potassium 4.1 mmol/L (3.5-5.1); Protein, Total 7.7 g/dL (6.4-8.2); Sodium Level 138 mmol/L (136-145); Troponin (Emerg Dept Use Only) < 0.02 ng/mL (0.0-0.045)
--- NOTE | 2020-06-25 18:23 | RAD REPORT ---
EXAM DESCRIPTION: CT - Angio Aorta For Dissection - 06/25/2020 5:37 pm CLINICAL HISTORY: Chest pain radiating to the back. abdominal pain;Chest pain COMPARISON: Chest Single View dated 06/25/2020 TECHNIQUE: CT angiography of the aorta was performed with MIPs. All CT scans are performed using dose optimization technique as appropriate and may include automated exposure control or mA/KV adjustment according to patient size. FINDINGS: A left aortic arch is present with normal branching pattern of the great vessels.No acute aortic finding is seen such as aneurysm, penetrating ulcer or dissection. The celiac axis, SMA, MAGDALENE and renal arteries are patent. No evidence of pulmonary embolism. Bilateral calcified pleural plaques are present. A noncalcified nodule is seen in the medial left sal g base measuring 12 x 14 mm. Slightly heterogenously enhancing but poorly defined lesion is seen in the superior anterior dome of the liver measuring 7.4 x 6.0 cm. Trace amount of fluid is seen anterior to the left lobe liver. The spleen, pancreas, adrenal glands and kidneys are within normal limits for arterial phase imaging.5.3 cm cyst is present inferior left kidney. No bowel obstruction, free fluid or abscess.No pathologic enlarged lymphadenopathy identified.Sigmoid diverticulosis coli is present without diverticulitis. Normal appendix. No fracture or worrisome bone lesion seen. Mild high density fluid is seen layering in the pelvis. IMPRESSION: No acute aortic finding is demonstrated. A heterogenous poorly defined mass is identified in the dome of the liver anteriorly. There is mild h igh density fluid anterior to the lesion in the liver as well as layering in the pelvis. This may ind icate that this lesion represents hepatic adenoma with mild bleeding. 12 x 14 mm noncalcified nodule medial left lung base. Given the evidence of prior asbestos exposure ( calcified pleural plaques bilaterally), neoplasia is certainly a possibility. Followup nonemergent PE T-CT assessment would be recommended.
--- NOTE | 2020-06-25 19:48 | ER ---
Nurse's Notes [facility] Name: Cruzito Sims Jr Age: 69 yrs Sex: Male : 1950 Arrival Date: 06/25/2020 Time: 16:16 Bed 6 Private MD: Vasu Esposito E Diagnosis: Abnormal findings on diagnostic imaging of liver and biliary tract-Liver mass with suspected bleeding Presentation: 06/25 16:19 Chief complaint: Patient states: Epigastric pain since Wednesday night. Wednesday it was ca1 gone. Came back again last night, radiating to the L chest, L shoulder. Worse with repositioning. Denies N/V/D. Reports constipation. Coronavirus screen: Client denies travel out of the [place] in the last 14 days. At this time, the client does not indicate any symptoms associated with coronavirus-19. Coronavirus screen: The client denies any previous COVID testing. Ebola Screen: Patient negative for fever greater than or equal to 101.5 degrees Fahrenheit, and additional compatible Ebola Virus Disease symptoms Patient denies exposure to infectious person. Patient denies travel to an Ebola-affected area in the 21 days before illness onset. No symptoms or risks identified at this time. Initial Sepsis Screen: Does the patient meet any 2 criteria? No. Patient's initial sepsis screen is negative. Does the patient have a suspected source of infection? No. Patient's initial sepsis screen is negative. Risk Assessment: Do you want to hurt yourself or someone else? Patient reports no desire to harm self or others. Onset of symptoms was June 25, 2020. 16:19 Method Of Arrival: Ambulatory ca1 16:19 Acuity: MAURA 3 ca1 Historical: - Allergies: 16:25 Codeine; ca1 - PMHx: 16:25 Aneurysm; Asthma; COPD; Hepatitis; Hyperlipidemia; Hypertension; Essential Tremors; ca1 Hernia; - PSHx: 16:25 DBS; Hernia repair; ca1 - Immunization history:: Adult Immunizations up to date. - Social history:: Smoking status: Patient/guardian denies using tobacco, the patient reports quitting approximately 21 years ago. Screenin:56 Abuse screen: Denies threats or abuse. Nutritional screening: No deficits noted. tw2 Tuberculosis screening: No symptoms or risk factors identified. Fall Risk None identified. Assessment: 16:52 General: Appears in no apparent distress. Behavior is calm, cooperative, appropriate tw2 for age. Pain: Complains of pain in abdomen. Neuro: Level of Consciousness is awake, alert, obeys commands, Oriented to person, place, time, situation. Cardiovascular: Heart tones S1 S2 Patient's skin is warm and dry. Respiratory: Airway is patent Respiratory effort is even, unlabored, Respiratory pattern is regular, symmetrical, Breath sounds are clear bilaterally. GI: Abdomen is round distended, Bowel sounds present X 4 quads. Abd is rigid X 4 quads. Reports upper abdominal pain, epigastric pain. : No signs and/or symptoms were reported regarding the genitourinary system. EENT: No signs and/or symptoms were reported regarding the EENT system. Derm: No signs and/or symptoms reported regarding the dermatologic system. Musculoskeletal: Range of motion: intact in all extremities. 18:04 Reassessment: Patient appears in no apparent distress at this time. No changes from tw2 previously documented assessment. Patient and/or family updated on plan of care and expected duration. Pain level reassessed. Patient is alert, oriented x 3, equal unlabored respirations, skin warm/dry/pink. 19:03 Reassessment:. General: Appears in no apparent distress. comfortable, Behavior is calm, mg2 cooperative. Pain: Denies pain. Neuro: Level of Consciousness is awake, alert, obeys commands, Oriented to person, place, time, situation. Cardiovascular: Capillary refill < 3 seconds Patient's skin is warm and dry. Respiratory: Airway is patent Respiratory effort is even, unlabored, Respiratory pattern is regular, symmetrical. GI: Reports only pain with palpation. : No signs and/or symptoms were reported regarding the genitourinary system. EENT: No signs and/or symptoms were reported regarding the EENT system. Derm: No signs and/or symptoms reported regarding the dermatologic system. Musculoskeletal: Range of motion: intact in all extremities. 19:20 Reassessment: Patient appears in no apparent distress at this time. Patient is alert, rr5 oriented x 3, equal unlabored respirations, skin warm/dry/pink. ultrasound procedure performing at bedside. 20:45 Reassessment: Patient appears in no apparent distress at this time. Patient is alert, rr5 oriented x 3, equal unlabored respirations, skin warm/dry/pink. [facility]. 21:46 Reassessment: Patient appears in no apparent distress at this time. Patient and/or mg2 family updated on plan of care and expected duration. Pain level reassessed. Patient is alert, oriented x 3, equal unlabored respirations, skin warm/dry/pink. 21:53 Reassessment: report given to Job staff from [facility] and accepted the case. rr5 22:10 Reassessment: report given to [facility], patient in good condition, VS stable, mg2 AO x4. Vital Signs: 16:19 BP 150 / 97; Pulse 66; Resp 20 S; Temp 97.3; Pulse Ox 99% on R/A; Weight 108.86 kg (R); ca1 Height 5 ft. 10 in. (177.80 cm) (R); Pain 5/10; 18:04 BP 126 / 87; Pulse 64; Resp 17; Pulse Ox 96% on R/A; tw2 19:02 BP 127 / 81; Pulse 64; Resp 18; Pulse Ox 97% on R/A; mg2 20:45 BP 140 / 90; Pulse 69; Resp 17; Pulse Ox 99% ; rr5 21:46 BP 142 / 88; Pulse 66; Resp 18; Temp 97.3(TE); Pulse Ox 98% on R/A; mg2 16:19 Body Mass Index 34.44 (108.86 kg, 177.80 cm) ca1 ED Course: 16:16 Patient arrived in ED. mr 16:16 Vasu Esposito MD is Private Physician. mr 16:23 Triage completed. ca1 16:25 Arm band placed on right wrist. ca1 16:25 Placed in gown. Bed in low position. Adult w/ patient. property assessment monitor on. Pulse ox on. tw2 NIBP on. 16:26 Balbir Garcia PA is PHCP. cp 16:26 Balbir López MD is Attending Physician. cp 16:45 Jena Delgadillo RN is Primary Nurse. tw2 16:52 Initial lab(s) drawn, by me, sent to lab. EKG done, by ED staff, reviewed by Balbir Garcia em1 JORGE. Inserted saline lock: 20 gauge in right antecubital area, using aseptic technique. Blood collected. 17:02 XRAY Chest (1 view) In Process Unspecified. EDMS 17:37 CT Aorta for Dissection In Process Unspecified. EDMS 18:58 Report given to Bi,RN and SIMONE Alfonso. tw2 19:04 No provider procedures requiring assistance completed. mg2 19:28 US Abdomen Limited: RUQ In Process Unspecified. EDMS 20:09 initiated transfer with Gely Perez from the [facility] transfer center. mw2 20:17 faxed patient's information to the [facility] fax machine at [phone] and [phone]. mw2 21:17 administrative approval given by Gely Perez/ patient has been accepted to the [facility] hospital/ Dr. Wetzel has accepted the patient in transfer/ report to be called to [phone]. 22:13 Patient transferred, IV remains in place. intact, No redness/swelling at site. rr5 Administered Medications: 16:52 Drug: Zofran (Ondansetron) 4 mg Route: IVP; Site: right antecubital; tw2 18:04 Follow up: Response: No adverse reaction tw2 16:52 Drug: fentaNYL (PF) 25 mcg Route: IVP; Site: right antecubital; tw2 18:04 Follow up: Response: No adverse reaction; Pain is decreased; RASS: Alert and Calm (0) tw2 Outcome: 19:47 ER care complete, transfer ordered by MD. cp 22:13 Transferred by ground EMS to [facility] Transfer form completed. rr5 22:13 Condition: stable 22:13 Instructed on the need for transfer. 22:13 Patient left the ED. rr5 Signatures: Dispatcher [employer] EDIA Alma Delia HookKimani em1 Bablir Garcia PA PA cp Jena Delgadillo RN RN tw2 Fan Oliveros mw2 Gordo Sultana, SIMONE RN mg2 Bi Armstrong, RN RN rr5 Deneen Forbes RN RN ca1
--- NOTE | 2020-06-25 19:48 | EDPHYS ---
Physician Documentation [facility] Name: Cruzito Sims Jr Age: 69 yrs Sex: Male : 1950 Arrival Date: 06/25/2020 Time: 16:16 Bed 6 Private MD: Vasu Esposito E ED Physician Balbir López HPI: 06/25 16:35 This 69 yrs old Male presents to ER via Ambulatory with complaints of Chest cp and Abdominal Pain. 16:35 The patient presents with abdominal pain in the epigastric area. cp 16:35 Onset: The symptoms/episode began/occurred last week, and became worse yesterday. The cp symptoms radiate to the left shoulder. Associated signs and symptoms: Pertinent positives: anorexia, constipation, lower substernal chest pain, Pertinent negatives: diarrhea, fever, shortness of breath. The symptoms are described as intermittent, sharp. Modifying factors: the symptoms are aggravated by lying on side. Historical: - Allergies: 16:25 Codeine; ca1 - PMHx: 16:25 Aneurysm; Asthma; COPD; Hepatitis; Hyperlipidemia; Hypertension; Essential Tremors; ca1 Hernia; - PSHx: 16:25 DBS; Hernia repair; ca1 - Immunization history:: Adult Immunizations up to date. - Social history:: Smoking status: Patient/guardian denies using tobacco, the patient reports quitting approximately 21 years ago. ROS: 16:40 Constitutional: Negative for body aches, chills, fever, poor PO intake. cp 16:40 Eyes: Negative for injury, pain, redness, and discharge. cp 16:40 ENT: Negative for ear pain, sore throat, difficulty swallowing, difficulty handling secretions. 16:40 Cardiovascular: Positive for chest pain, of the lower substernal area, Negative for edema, palpitations. 16:40 Respiratory: Negative for cough, shortness of breath, wheezing. 16:40 Abdomen/GI: Positive for abdominal pain, constipation, anorexia, of the epigastric area, Negative for vomiting, diarrhea, black/tarry stool, rectal bleeding. 16:40 Back: Negative for radiated pain. 16:40 MS/extremity: Positive for intermittent radiating pain to left shoulder, Negative for injury or acute deformity, decreased range of motion. 16:40 Neuro: Negative for altered mental status, dizziness, headache, syncope, weakness. 16:40 All other systems are negative. Exam: 16:45 Constitutional: The patient appears in no acute distress, alert, awake, cp non-diaphoretic, non-toxic, well developed, well nourished, uncomfortable. 16:45 Head/Face: Normocephalic, atraumatic. cp 16:45 Eyes: Periorbital structures: appear normal, Conjunctiva: normal, no exudate, no injection, Sclera: no appreciated abnormality, Lids and lashes: appear normal, bilaterally. 16:45 ENT: External ear(s): are unremarkable, Nose: is normal, Mouth: Lips: moist, Oral mucosa: moist, Posterior pharynx: Airway: no evidence of obstruction, patent. 16:45 Neck: ROM/movement: is normal, is supple, without pain, no range of motions limitations. 16:45 Chest/axilla: Inspection: normal, Palpation: crepitus, is not appreciated, tenderness, that is moderate, of the xyphoid area, that partially reproduces the patient's complaints. 16:45 Cardiovascular: Rate: normal, Rhythm: regular, Edema: is not appreciated, JVD: is not appreciated. 16:45 Respiratory: the patient does not display signs of respiratory distress, Respirations: normal, no use of accessory muscles, no retractions, labored breathing, is not present, Breath sounds: are clear throughout, no decreased breath sounds, no stridor, no wheezing. 16:45 Abdomen/GI: Inspection: obese Bowel sounds: active, all quadrants, Palpation: soft, in all quadrants, moderate abdominal tenderness, in the epigastric area, rebound tenderness, is not appreciated, voluntary guarding, is elicited in the epigastric area. 16:45 Back: pain, is absent, ROM is normal. 16:45 Skin: no rash present. 16:45 Neuro: Orientation: to person, place \T\ time. Mentation: is normal, Motor: moves all fours, strength is normal. 16:49 ECG was reviewed by the Attending Physician. cp Vital Signs: 16:19 BP 150 / 97; Pulse 66; Resp 20 S; Temp 97.3; Pulse Ox 99% on R/A; Weight 108.86 kg (R); ca1 Height 5 ft. 10 in. (177.80 cm) (R); Pain 5/10; 18:04 BP 126 / 87; Pulse 64; Resp 17; Pulse Ox 96% on R/A; tw2 19:02 BP 127 / 81; Pulse 64; Resp 18; Pulse Ox 97% on R/A; mg2 20:45 BP 140 / 90; Pulse 69; Resp 17; Pulse Ox 99% ; rr5 21:46 BP 142 / 88; Pulse 66; Resp 18; Temp 97.3(TE); Pulse Ox 98% on R/A; mg2 16:19 Body Mass Index 34.44 (108.86 kg, 177.80 cm) ca1 MDM: 06/24 16:45 Differential diagnosis: AAA, acute coronary syndrome, cholecystitis, Cholelithiasis, GI cp Bleed, pancreatitis, Peptic Ulcer Disease, Perf. Duodenal Ulcer, Perf. Gastric Ulcer. 06/25 16:28 Patient medically screened. [facility] 19:30 Data reviewed: vital signs, nurses notes, lab test result(s), EKG, radiologic studies, cp CT scan, plain films, I have discussed the patient's presentation/case with the attending Emergency Department Physician;. 19:43 Physician consultation: Shaheed Onofre MD was called at 19:44, was contacted at 19:44, recommends transfer of patient due to suspected bleeding from liver mass. 06/25 16:35 Order name: Basic Metabolic Panel; Complete Time: 17:27 06/25 16:35 Order name: CBC with Diff; Complete Time: 17:27 06/25 16:35 Order name: LFT's; Complete Time: 17:27 06/25 16:35 Order name: Magnesium; Complete Time: 17:27 06/25 16:35 Order name: NT PRO-BNP; Complete Time: 17:27 06/25 16:35 Order name: PT-INR; Complete Time: 17:27 06/25 16:35 Order name: Troponin (emerg Dept Use Only); Complete Time: 17:27 06/25 16:35 Order name: XRAY Chest (1 view); Complete Time: 17:17 06/25 17:17 Interpretation: Report reviewed. 06/25 16:35 Order name: Lipase; Complete Time: 17:27 06/25 16:42 Order name: CT Aorta for Dissection; Complete Time: 18:28 06/25 18:32 Order name: US Abdomen Limited: RUQ; Complete Time: 21:15 cp 06/25 19:31 Order name: Ptt, Activated; Complete Time: 19:46 cp 06/25 19:31 Order name: LAB Add On 06/25 16:35 Order name: EKG; Complete Time: 16:36 cp 06/25 16:35 Order name: Cardiac monitoring; Complete Time: 16:54 06/25 16:35 Order name: EKG - Nurse/Tech; Complete Time: 16:52 06/25 16:35 Order name: IV Saline Lock; Complete Time: 16:52 cp 06/25 16:35 Order name: Labs collected and sent; Complete Time: 16:52 cp 06/25 16:35 Order name: O2 Per Protocol; Complete Time: 16:54 cp 06/25 16:35 Order name: O2 Sat Monitoring; Complete Time: 16:54 cp EC:49 Rate is 66 beats/min. Rhythm is regular. GA interval is normal. QRS interval is normal. cp QT interval is normal. T waves are Inverted in lead aVR. Interpreted by me. Reviewed by me. Administered Medications: 16:52 Drug: Zofran (Ondansetron) 4 mg Route: IVP; Site: right antecubital; tw2 18:04 Follow up: Response: No adverse reaction tw2 16:52 Drug: fentaNYL (PF) 25 mcg Route: IVP; Site: right antecubital; tw2 18:04 Follow up: Response: No adverse reaction; Pain is decreased; RASS: Alert and Calm (0) tw2 Disposition: 06/26 08:04 Co-signature as Attending Physician, Balbir López MD I agree with the assessment and margarette plan of care. Disposition: 06/25/20 19:47 Transfer ordered to [facility]. Diagnosis is Abnormal findings on diagnostic imaging of liver and biliary tract - Liver mass with suspected bleeding. - Reason for transfer: Higher level of care. - Accepting physician is DR Renata Gaytan. - Condition is Stable. - Problem is new. - Symptoms have improved. Signatures: Dispatcher [employer] EDMI Balbir López MD MD cha Attema, Lee, JIG FITTER-C JIG FITTER-Cla1 Balbir Garcia PA PA cp Wise, Tara RN RN tw2 Bi Armstrong RN RN rr5 Deneen Forbes RN RN ca1 Corrections: (The following items were deleted from the chart) 06/25 20:46 16:36 This 69 yrs old Male presents to ER via Ambulatory with complaints of cp Chest and Abdominal Pain. cp 21:19 19:47 06/25/2020 19:47 Transfer ordered to Other Acute Care Facility. Diagnosis is cp Abnormal findings on diagnostic imaging of liver and biliary tract - Liver mass with suspected bleeding. Reason for transfer: Higher level of care. Accepting physician is Doctor. Condition is Stable. Problem is new. Symptoms have improved. cp 22:13 21:19 06/25/2020 19:47 [facility] ordered to [facility]. Diagnosis rr5 is Abnormal findings on diagnostic imaging of liver and biliary tract - Liver mass with suspected bleeding. Reason for transfer: Higher level of care. Accepting physician is DR Renata Gaytan. Condition is Stable. Problem is new. Symptoms have improved. cp
--- NOTE | 2020-06-25 20:03 | RAD REPORT ---
EXAM DESCRIPTION: US - Abdomen Exam Limited - 06/25/2020 7:28 pm CLINICAL HISTORY: EPIGASTRIC PAIN COMPARISON: Angio Aorta For Dissection dated 06/25/2020 FINDINGS: The gallbladder demonstrates no gallstones. No pericholecystic fluid or gallbladder wall t hickening. The common bile duct is normal measuring 5 mm. The liver demonstrates no findings of intrahepatic biliary dilatation. IMPRESSION: Unremarkable examination.
[2020-06-25 22:24] VITALS: TEMP 97.3
[2020-06-25 22:29] VITALS: BP 142/88; O2SAT 98
--- NOTE | 2020-06-26 05:38 | EKG ---
Test Date: 2020-06-25 Test Time: 16:49:14 Sports Cartoonist: LESLIE MEASUREMENT RESULTS: Intervals: Rate: 66 SD: 138 QRSD: 72 QT: 424 QTc: 444 [place]: P: -25 SD: 138 QRS: 53 T: 51 INTERPRETIVE STATEMENTS: Normal sinus rhythm Normal ECG Compared to ECG 10/06/2019 06:36:11 No significant changes Electronically Signed On 06-26-20 05:38:00 CDT by Jose G Santiago
== END 2020-06-25 22:13 ==
LOC: ER 16:13
DX: R93.2 Abnormal findings on diagnostic imaging of liver and biliary tract (principal); R16.0 Hepatomegaly, not elsewhere classified; I10 Essential (primary) hypertension; Z88.5 Allergy status to narcotic agent
CPT/HCPCS: 93005; 85025; 80048; 36415; 83735; 85610; 80076; 85730; 84484; 83690; 83880; 71275; 74175; 71045; 76705; 96375; 96374; 99285; Q9967; J3010; J2405

== ENCOUNTER 2021-06-05 18:14 | Emergency (ER) | payer OTHER ==
--- OUTSIDE RECORDS SUMMARY | 2021-06-05 18:17 | XMS REPORT | Continuity of Care Document ---
:1950 Author Organization [facility] Address [address] Sánchez [address] [place] [id number] Care Team Providers Name Role Phone Tova Irving Attending Clinician Doctor Unassigned, Name Attending Clinician Unavailable Problems Condition Condition Condition Status Onset Resolution Last Treating Co mments Source Name Details Category Date Date Treatment Clinician Date Essential Essential Problem Active Chris moody hypertensi Hypertensi 4-04 Fa margoth on on 00:00: Practic 00 e Hemorrhagi Hemorrhagi Problem Active [facility] c disorder c Disorder 2-24 Fa margoth due to Due to 00:00: Practic circulatin Circulatin 00 e g g anticoagul Anticoagul ants ants Malignant Malignant Problem Active Chris moody neoplasm Neoplasm 1-04 Family of liver of Liver 00:00: Practi c 00 e Atrial Atrial Problem Active [facility] fibrillati Fibrillati 05-27 Fa margoth on on 00:00: Practic 00 e Chronic Chronic Problem Active [facility] obstructiv Obstructiv 05-27 Fa margoth e lung e Lung 00:00: Practic disease Disease 00 e Gastroesop Gastroesop Problem Active [facility] hageal hageal 05-27 Family reflux Reflux 00:00: Practic disease Disease 00 e without without esophagiti Esophagiti s s Benign Benign Problem Active [facility] prostatic Prostatic 05-27 Fami ly hyperplasi Hyperplasi 00:00: Pr actic a a 00 e Plantar Plantar Problem Active [facility] fasciitis Fasciitis 05-27 Fami ly 00:00: Practic 00 e Allergies, Adverse Reactions, Alerts This patient has no known allergies or adverse reactions. Social History Smoking Status Start Date Stop Date Source Former Smoker [facility] Family P ractice Medications Ordered Filled Start Stop Current Ordering Indication Dosage Frequency Signature Comments Components Source Medication Medication Date Date Medication? Clinician (SIG) Name Name budesonide budesonide No 2mL BID budesonide [facility] 0.25 mg/2 0.25 mg/2 0.25 mg/2 Family mL mL mL Practic suspension suspension suspension e for for for nebulizatio nebulizatio nebulizati n Inhale 2 n Inhale 2 on Inhale mL twice a mL twice a 2 mL twice day by day by a day by nebulizatio nebulizatio nebulizati n route. n route. on route. cyanocobala cyanocobala No 1 cyanocobal [facility] min (vit min (vit malhotra (vit Fa margoth B-12) 1,000 B-12) 1,000 B-12) Practic mcg tablet mcg tablet 1,000 mcg e Take 1 Take 1 tablet tablet by tablet by Take 1 oral route. oral route. tablet by oral route. Eliquis 5 Eliquis 5 No 1 BID Eliquis 5 Village mg tablet mg tablet mg tablet Family Take 1 Take 1 Take 1 Practic tablet tablet tablet e twice a day twice a day twice a by oral by oral day by route. route. oral route. finasteride finasteride No 1 Q1D finasterid [facility] 5 mg tablet 5 mg tablet e 5 mg Family Take 1 Take 1 tablet Practic tablet tablet Take 1 e every day every day tablet by oral by oral every day route. route. by oral route. Flonase 50 Flonase 50 No 1spray( Q1D Flonase 50 [facility] mcg/actuati mcg/actuati s) mcg/actuat Family on nasal on nasal ion nasal Pr actic spray,suspe spray,suspe spray,susp e nsion [place] nsion [place] ension 1 spray 1 spray [place] 1 every day every day spray by by every day intranasal intranasal by route. route. intranasal route. furosemide furosemide No 1 Q1D furosemide [facility] 20 mg 20 mg 20 mg Family tablet Take tablet Take tablet Practic 1 tablet 1 tablet Take 1 e every day every day tablet by oral by oral every day route. route. by oral route. loratadine loratadine No 1mg loratadine [facility] 10 mg 10 mg 10 mg Family capsule capsule capsule Practi c Take 1 mg Take 1 mg Take 1 mg e by oral by oral by oral route. route. route. magnesium magnesium No magnesium [facility] gluconate gluconate gluconate Family Practic e omeprazole omeprazole No 1capsul Q1D omeprazole [facility] 20 mg 20 mg e(s) 20 mg Family capsule,del capsule,del capsule,de Practic ayed ayed layed e release release release Take 1 Take 1 Take 1 capsule capsule capsule every day every day every day by oral by oral by oral route. route. route. potassium potassium No 1 potassium [facility] gluconate gluconate gluconate Family 1,000 mg 1,000 mg 1,000 mg Pra [...] Practic tab tab tab e tamsulosin tamsulosin No 1capsul Q1D tamsulosin [facility] 0.4 mg 0.4 mg e(s) 0.4 mg Family capsule capsule capsule Practi c Take 1 Take 1 Take 1 e capsule capsule capsule every day every day every day by oral by oral by oral route. route. route. albuterol albuterol No 3mL TID albuterol [facility] sulfate sulfate sulfate [facility] 1.25 mg/3 1.25 mg/3 1.25 mg/3 Practic mL solution mL solution mL e for for solution nebulizatio nebulizatio for n Inhale 3 n Inhale 3 nebulizati mL 3 times mL 3 times on Inhale a day by a day by 3 mL 3 inhalation inhalation times a route. route. day by inhalation route. atorvastati atorvastati No 1 Q1D atorvastat [facility] n 40 mg n 40 mg in 40 mg Famil y tablet Take tablet Take tablet Practic 1 tablet 1 tablet Take 1 e every day every day tablet by oral by oral every day route. route. by oral route. Vital Signs Vital Name Observation Time Observation Value Comments Source BP Diastolic 2020-12-27 00:00:00 75 mm[Hg] [facility] Height 2020-12-27 00:00:00 70 [in_i] [facility] BMI (Body Mass 2020-12-27 00:00:00 33.7 kg/m2 [facility] Family Index) Practice BP Systolic 2020-12-27 00:00:00 130 mm[Hg] [facility] Body Weight 2020-12-27 00:00:00 235 [lb_av] [facility] Height 2020-09-30 00:00:00 70 [in_i] [facility] Height 2020-05-27 00:00:00 70 [in_i] [facility] BMI (Body Mass 2020-05-27 00:00:00 35.2 kg/m2 [facility] e Family Index) Practice Body Weight 2020-05-27 00:00:00 245 [lb_av] [facility] Procedures Procedure Date / Time Performed Performing Clinician Sour e Deep Brain Stimulation [facility] Carpal Tunnel Surgery [facility] Encounters Start End Encounter Admission Attending Care Care Encounter Source Date/Time Date/Time Type Type Clinicians Facility Department ID 2020-12-27 2020-12-27 [facility] [place] - [id number] [facility] illage 00:00:00 00:00:00 [facility] Mario jarvis [facility]IL[facility] [facility] AUTHOR: Medical - Practi c [email or web address] [facility], [place] [address], [place] [address] , Ph. 2020-09-30 2020-09-30 [facility] [place] - [id number] V illage 00:00:00 00:00:00 [facility] Mario jarvis [employer] AUTHOR: Medical - Practi c [email or web address] [facility], [place] [address], [place] [address] , Ph. 2020-05-27 2020-05-27 [facility] [place] - [id number] V illage 00:00:00 00:00:00 [facility] noemí jarvis [employer] AUTHOR: Medical - Practi c [email or web address] [facility], [place] [address], [place] [address] , Ph. 2019-05-10 2019-05-10 Office JELLY Irving [id number] 10:39:34 11:10:07 Visit Hiren Eric [id number] [place] [id number] Radha [id number] [address] 2019-05-10 2019-05-10 Orders Doctor NILAM [id number] 00:00:00 00:00:00 Only Unassigned, YAMILA [id number] [facility] [id number] Results This patient has no known results.
[2021-06-05 19:16] LABS: Absolute Lymphocytes (CBC) 0.8 K/uL (0.7-4.9); Basophils % 0.5 % (0-1.3); Hematocrit 43.2 % (39.6-49.0); Lymphocytes % 7.1 % (15.3-44.8); RBC Red Blood Cell Count 5.36 M/uL (4.33-5.43)
[2021-06-05 19:25] LABS: Protime INR 1.33
[2021-06-05] MEDS ORDERED: METHYLPREDNISOLONE 125 MG INJ ONE (19:40)
[2021-06-05] MEDS ORDERED: NA CHLORIDE 0.9% 250 ML ONE (19:41)
[2021-06-05] MEDS ORDERED: NA CHLORIDE 0.9% 500 ML ONE (19:41)
[2021-06-05] MEDS ORDERED: ACETAMINOPHEN 500 MG TAB ONE (19:41)
[2021-06-05] MEDS ORDERED: VANCOMYCIN 1 GM/VIAL ONE (19:41)
[2021-06-05] MEDS ORDERED: LEVALBUTEROL 1.25 MG/3 ML NEB ONE (19:41)
[2021-06-05 19:42] LABS: ALT/SGPT 182 U/L (12-78); AST/SGOT 241 U/L (15-37); Albumin 2.8 g/dL (3.4-5.0); Alkaline Phosphatase 303 U/L (45-117); Amylase 35 U/L (25-115); BUN Blood Urea Nitrogen 19 mg/dL (7-18); Bicarbonate 23 mmol/L (21-32); Bilirubin Total 1.8 mg/dL (0.2-1.0); CKMB Creatine Kinase MB < 1.0 ng/mL (1.0-3.6); Creatine Phosphokinase 73 U/L (39-308); Glucose Level 108 mg/dL (74-106); Lipase 111 U/L (73-393); Potassium 3.9 mmol/L (3.5-5.1); Protein, Total 8.3 g/dL (6.4-8.2); Sodium Level 131 mmol/L (136-145); Troponin (Emerg Dept Use Only) < 0.02 ng/mL (0.0-0.045)
[2021-06-05] MEDS ORDERED: NA CHLORIDE 0.9% 3,000 ML ONE (19:42)
--- NOTE | 2021-06-05 20:06 | RAD REPORT ---
EXAM DESCRIPTION: RAD - Chest Single View - 06/05/2021 6:53 pm CLINICAL HISTORY: COPD COMPARISON: Chest Single View dated 06/25/2020; Chest Single View dated 10/05/2019; Chest Single View d ated 04/13/2017 FINDINGS: Lines: Pacemaker. Lungs: Increased prominence of the pulmonary vasculature. Pleural: Calcified pleural plaques bilaterally. Cardiac: Cardiomegaly . Bones: No acute fractures. Other: IMPRESSION: Increased prominence of the pulmonary vasculature likely reflecting vascular congestion. No other acute process identified.
[2021-06-05] MEDS ORDERED: FAMOTIDINE 20 MG/2 ML VIAL IV ONE (20:45)
[2021-06-05] MEDS ORDERED: CEFEPIME/SWI 1gm 10 ML ONE (20:46)
--- NOTE | 2021-06-05 21:00 | ER ---
Nurse's Notes [facility] Name: Cruzito Sims Jr Age: 70 yrs Sex: Male : 1950 Arrival Date: 06/05/2021 Time: 18:30 Bed 18 Private MD: Diagnosis: Unspecified atrial fibrillation-with rvr;Chronic atrial fibrillation;Fever, unspecified;Abdominal pain, unspecified-upper, hx of Liver Cancer;COPD/ Chronic obstructive pulmonary disease, unspecified Presentation: 06/05 18:30 Chief complaint: EMS states: "family called EMS after the pt was reporting shortness of jd3 breath and fever that has developed over the last couple of days. the pt does report a history of COPD with a recent admission and discharge for COPD exasperation.". Coronavirus screen: cough unrelated to allergies, fever, Client presents with at least one sign or symptom that may indicate coronavirus-19. Standard/surgical mask placed on the client. Provider contacted for isolation considerations. Ebola Screen: Patient negative for fever greater than or equal to 101.5 degrees Fahrenheit, and additional compatible Ebola Virus Disease symptoms. Initial Sepsis Screen: Does the patient meet any 2 criteria? RR > 20 per min. Temp <36.0*C (96.8*F)) or > 38.3*C (100.9*F). HR > 90 bpm. Yes Does the patient have a suspected source of infection? Yes: Productive cough/pneumonia. Risk Assessment: Do you want to hurt yourself or someone else? Patient reports no desire to harm self or others. Onset of symptoms was June 03, 2021. 18:30 Method Of Arrival: EMS: [facility] jd3 18:30 Acuity: MAURA 2 jd3 Historical: - Allergies: 18:32 Codeine; jd3 - PMHx: 18:32 Aneurysm; Asthma; COPD; ESSENTIAL TREMORS; Hepatitis; Hernia; Hyperlipidemia; jd3 Hypertension; - Immunization history:: Adult Immunizations unknown. - Social history:: Smoking status: Patient denies any tobacco usage or history of. Screenin:34 Abuse screen: Denies threats or abuse. Nutritional screening: No deficits noted. jd3 Tuberculosis screening: No symptoms or risk factors identified. Fall Risk Ambulatory Aid- None/Bed Rest/Nurse Assist (0 pts). Gait- Weak (10 pts.). Mental Status- Oriented to own ability (0 pts). Total López Fall Scale indicates Low Risk Score (25-44 pts). Fall prevention measures have been instituted. Side Rails Up X 2 Placed close to Nursing Station Frequent Obs/Assesments occuring. Assessment: 18:34 General: Appears in no apparent distress. uncomfortable, Behavior is calm, cooperative, jd3 appropriate for age. Pain: Denies pain. Neuro: Level of Consciousness is awake, alert, obeys commands, Oriented to person, place, time, situation. Cardiovascular: Capillary refill < 3 seconds Patient's skin is warm and dry. Rhythm is sinus tachycardia. Respiratory: Airway is patent Respiratory effort is labored, shallow, Respiratory pattern is symmetrical, tachypnea Breath sounds are diminished bilaterally. GI: No signs and/or symptoms were reported involving the gastrointestinal system. : No signs and/or symptoms were reported regarding the genitourinary system. EENT: No signs and/or symptoms were reported regarding the EENT system. Derm: Skin is intact, Skin is dry, Skin is normal, Skin temperature is warm. Musculoskeletal: No signs and/or symptoms reported regarding the musculoskeletal system. Vital Signs: 18:33 BP 129 / 81; Pulse 117; Resp 29 S; Temp 101(O); Pulse Ox 97% on R/A; Weight 117.93 kg jd3 (R); Height 60 ft. (1828.80 cm) (R); Pain 0/10; 20:00 BP 106 / 73; Pulse 180; Resp 24; Pulse Ox 99% ; lh3 23:24 BP 116 / 96; Pulse 128; Resp 24; Temp 97.6; Pulse Ox 100% ; lh3 18:33 Body Mass Index 0.35 (117.93 kg, 1828.80 cm) jd3 ED Course: 18:30 Patient arrived in ED. jd3 18:32 Triage completed. jd3 18:32 Tulio Chavez MD is Attending Physician. kdr 18:33 Arm band placed on. jd3 18:33 Patient has correct armband on for positive identification. Placed in gown. Bed in low jd3 position. Call light in reach. Side rails up X2. awake overnight monitor on. Pulse ox on. NIBP on. 18:53 Chest Single View XRAY In Process Unspecified. EDMS 19:13 Luciano Quezada, RN is Primary Nurse. jd3 19:16 Inserted saline lock: 20 gauge in left antecubital area, using aseptic technique. kc4 19:45 Attending Physician role handed off by Tulio Chavez MD margarette 19:45 Balbir López MD is Attending Physician. margarette 20:40 US Abdomen Limited In Process Unspecified. EDMS 21:32 CT Head Brain wo Cont In Process Unspecified. EDMS 21:32 CT Chest, Abdomen, Pelvis - W/Contrast In Process Unspecified. EDMS 22:35 faxed patient clinicals to [facility]. mw2 23:14 Tylenol Level Sent. lh3 23:14 TSH Sent. lh3 23:22 called the [facility] spoke to Ryanne the Patient Services Assistant to see if they received the [facility] patient's clinicals. She stated " we received them the clinicals are in the ER waiting for the Doctor to look at them.". 23:[address] López with the Dr. Talbot from [facility]. mw2 23:51 administrative approval given by Kellen Stoner/ patient has been accepted to the [address]/ Dr. Talbot accepted the patient in transfer/ report to be called to [phone]. 06/06 00:15 Report given to SIMONE Doshi at the [facility]. lh3 00:15 No provider procedures requiring assistance completed. Patient transferred, IV remains lh3 in place. intact. Administered Medications: 06/05 19:46 Drug: NS 0.9% (30 ml/kg) 30 ml/kg Route: IV; Rate: bolus; Site: left antecubital; jd3 19:46 Drug: Tylenol 1000 mg Route: PO; jd3 19:47 Drug: Xopenex (levalbuterol) (3) 1.25 mg Route: Inhalation; jd3 19:47 Drug: SOLU-Medrol (methylPrednisoLONE) 125 mg Route: IVP; Site: left antecubital; jd3 23:35 Follow up: Response: No adverse reaction lh3 19:47 Drug: vancoMYCIN 1.5 grams Route: IVPB; Rate: calculated rate; Site: left antecubital; jd3 23:34 Follow up: Response: No adverse reaction; IV Status: Completed infusion lh3 20:24 Drug: Cefepime 1 grams Route: IVPB; Rate: 200 ml/hr; Infused Over: 30 mins; Site: left lh3 antecubital; 23:31 Follow up: Response: No adverse reaction; IV Status: Completed infusion lh3 20:24 Drug: Pepcid (famotidine) 20 mg Route: IVP; Site: left antecubital; lh3 23:31 Follow up: Response: No adverse reaction lh3 21:17 Drug: Lopressor (metoprolol) 5 mg Route: IVP; Site: left antecubital; lh3 23:31 Follow up: Response: No adverse reaction lh3 21:17 Drug: Digoxin 0.5 mg Route: IVP; Site: left antecubital; lh3 23:31 Follow up: Response: No adverse reaction lh3 21:18 Drug: Lopressor (metoprolol TARTRATE) 50 mg Route: PO; lh3 23:31 Follow up: Response: No adverse reaction lh3 22:13 Drug: Lopressor (metoprolol) 5 mg Route: IVP; Site: left antecubital; lh3 23:30 Follow up: Response: No adverse reaction lh3 22:50 Drug: Lopressor (metoprolol) 5 mg Route: IVP; Site: left antecubital; lh3 23:30 Follow up: Response: No adverse reaction 3 23:24 Drug: Sotalol 120 mg Route: PO; 3 Outcome: 21:00 ER care complete, transfer ordered by MD. pfeiffer 06/06 00:15 Transferred by ground EMS to [facility] Transfer form completed. 3 X-rays sent w/ patient. Condition: improved Instructed on the need for transfer. 00:42 Patient left the ED. 3 Signatures: Dispatcher [employer] EDMS Balbir López MD MD cha Rittger, Kevin, MD MD kdr Davies, Jonathon, RN RN Fan [place] mw2 Debbie Ennis RN RN lh3 Ann Marie Roche kc4 Corrections: (The following items were deleted from the chart) 06/05 21:09 20:57 CORONAVIRUS+ drawn and sent. [facility] EDND
--- NOTE | 2021-06-05 21:01 | EDPHYS ---
Physician Documentation [facility] Name: Cruzito Sims Jr Age: 70 yrs Sex: Male : 1950 Arrival Date: 06/05/2021 Time: 18:30 Bed 18 Private MD: ED Physician Balbir López HPI: 06/05 18:52 This 70 yrs old Male presents to ER via EMS with complaints of Shortness of kdr breath. 18:52 The patient has shortness of breath at rest. Onset: The symptoms/episode began/occurred kdr at an unknown time. Duration: The symptoms are continuous, and are steadily getting worse. The patient's shortness of breath is aggravated by light activity, talking. Associated signs and symptoms: Pertinent positives: productive cough, diaphoresis, fever, nausea. Severity of symptoms: At their worst the symptoms were moderate severe just prior to arrival, in the emergency department the symptoms are unchanged. The patient has experienced similar episodes in the past, Patient and EMS report that he was recently admitted for COPD exacerbation. The patient has been recently been admitted at [facility], was discharged last week. Historical: - Allergies: 18:32 Codeine; jd3 - PMHx: 18:32 Aneurysm; Asthma; COPD; ESSENTIAL TREMORS; Hepatitis; Hernia; Hyperlipidemia; jd3 Hypertension; - Immunization history:: Adult Immunizations unknown. - Social history:: Smoking status: Patient denies any tobacco usage or history of. ROS: 18:52 Constitutional: Patient presents with fever, he is not able to communicate his current kdr signs and symptoms. Eyes: Negative for injury, pain, redness, and discharge, Neck: Negative for injury, pain, and swelling, Cardiovascular: Negative for chest pain, palpitations, and edema, Abdomen/GI: Negative for abdominal pain, nausea, vomiting, diarrhea, and constipation, Back: Negative for injury and pain, : Negative for injury, bleeding, discharge, and swelling, MS/Extremity: Negative for injury and deformity, Skin: Negative for injury, rash, and discoloration, Neuro: Negative for headache, weakness, numbness, tingling, and seizure activity. Psych: Negative for depression, anxiety, suicide ideation, homicidal ideation, and hallucinations, Allergy/Immunology: Negative for hives, rash, and allergies, Endocrine: Negative for neck swelling, polydipsia, polyuria, polyphagia, and marked weight changes, Hematologic/Lymphatic: Negative for swollen nodes, abnormal bleeding, and unusual bruising. 18:52 Respiratory: Positive for cough, "sounds productive", dyspnea on exertion, shortness of breath, at rest. Exam: 18:52 Constitutional: This is a well developed, well nourished patient who is awake, alert, kdr and in moderate to severe respiratory distress. Head/Face: Normocephalic, atraumatic. Eyes: Pupils equal round and reactive to light, extra-ocular motions intact. Lids and lashes normal. Conjunctiva and sclera are non-icteric and not injected. Cornea within normal limits. Periorbital areas with no swelling, redness, or edema. Neck: Trachea midline, no thyromegaly or masses palpated, and no cervical lymphadenopathy. Supple, full range of motion without nuchal rigidity, or vertebral point tenderness. No Meningismus. Chest/axilla: Normal chest wall appearance and motion. Nontender with no deformity. No lesions are appreciated. Cardiovascular: Regular rate but tachycardic with a normal S1 and S2. No gallops, murmurs, or rubs. Normal PMI, no JVD. No pulse deficits. Respiratory: Lungs have equal breath sounds bilaterally, clear to auscultation and percussion. No rales, rhonchi or wheezes noted. No increased work of breathing, no retractions or nasal flaring. 18:52 Respiratory: mild respiratory distress is noted, Respirations: shallow respirations, that is mild, Breath sounds: are clear throughout, Respiratory rate: 29 19:55 Abdomen/GI: Inspection: distension, Bowel sounds: normal, Palpation: moderate abdominal margarette tenderness, in all quadrants, Liver: tenderness, that is moderate, Hernia: not appreciated. 21:00 ECG was reviewed by the Attending Physician. [facility] 21:01 ECG was reviewed by the Attending Physician. [facility] Vital Signs: 18:33 BP 129 / 81; Pulse 117; Resp 29 S; Temp 101(O); Pulse Ox 97% on R/A; Weight 117.93 kg jd3 (R); Height 60 ft. (1828.80 cm) (R); Pain 0/10; 20:00 BP 106 / 73; Pulse 180; Resp 24; Pulse Ox 99% ; lh3 23:24 BP 116 / 96; Pulse 128; Resp 24; Temp 97.6; Pulse Ox 100% ; lh3 18:33 Body Mass Index 0.35 (117.93 kg, 1828.80 cm) jd3 MDM: 18:52 Data reviewed: vital signs, nurses notes, lab test result(s), radiologic studies. kdr Counseling: I had a detailed discussion with the patient and/or guardian regarding: the historical points, exam findings, and any diagnostic results supporting the discharge/admit diagnosis, lab results, radiology results. 19:46 Patient medically screened. [facility] 06/05 18:34 Order name: Amylase, Serum; Complete Time: 19:50 [facility] 06/05 18:34 Order name: Basic Metabolic Panel; Complete Time: 19:50 [facility] 06/05 18:34 Order name: Blood Culture Adult (2) [facility] 06/05 18:34 Order name: CBC with Diff; Complete Time: 19:50 [facility] 06/05 18:34 Order name: CPK; Complete Time: 19:50 [facility] 06/05 18:34 Order name: Ckmb; Complete Time: 19:50 [facility] 06/05 18:34 Order name: LFT's; Complete Time: 19:50 [facility] 06/05 18:34 Order name: Lactate; Complete Time: 19:50 [facility] 06/05 18:34 Order name: Lipase; Complete Time: 19:50 [facility] 06/05 18:34 Order name: Procalcitonin; Complete Time: 20:27 [facility] 06/05 18:34 Order name: Protime (+inr); Complete Time: 19:50 [facility] 06/05 18:34 Order name: Ptt, Activated; Complete Time: 19:50 [facility] 06/05 18:34 Order name: Troponin (emerg Dept Use Only); Complete Time: 19:50 [facility] 06/05 18:34 Order name: Urine Microscopic Only [facility] 06/05 18:34 Order name: Chest Single View XRAY; Complete Time: 20:27 [facility] 06/05 19:48 Order name: CT Head Brain wo Cont; Complete Time: 22:03 [facility] 06/05 19:48 Order name: CT Chest, Abdomen, Pelvis - W/Contrast; Complete Time: 22:03 [facility] 06/05 19:51 Order name: US Abdomen Limited; Complete Time: 22:03 [facility] 06/05 19:51 Order name: AMMONIA; Complete Time: 22:03 [facility] 06/05 19:56 Order name: Magnesium; Complete Time: 22:03 [facility] 06/05 19:56 Order name: NT PRO-BNP; Complete Time: 22:03 [facility] 06/05 19:57 Order name: Tylenol Level [facility] 06/05 19:58 Order name: Acetaminophen Level; Complete Time: 22:03 [facility] 06/05 20:48 Order name: TSH [facility] 06/05 20:48 Order name: Thyroid Stimulating Hormone; Complete Time: 22:03 [facility] 06/05 22:04 Order name: SARS-COV-2 RT PCR; Complete Time: 22:24 [facility] 06/06 00:13 Order name: Urine Culture [facility] 06/05 18:34 Order name: Accucheck; Complete Time: 19:13 [facility] 06/05 18:34 Order name: Cardiac monitoring; Complete Time: 19:14 [facility] 06/05 18:34 Order name: EKG - Nurse/Tech; Complete Time: 19:14 [facility] 06/05 18:34 Order name: IV Saline Lock - Large Bore; Complete Time: 19:14 [facility] 06/05 18:34 Order name: Labs collected and sent; Complete Time: 19:14 [facility] 06/05 18:34 Order name: O2 Per Protocol; Complete Time: 19:14 [facility] 06/05 18:34 Order name: O2 Sat Monitoring; Complete Time: 19:14 [facility] 06/05 19:56 Order name: EKG; Complete Time: 19:57 [facility] 06/05 19:56 Order name: IV Saline Lock margarette EC:00 Rate is 122 beats/min. Rhythm is irregularly irregular. QRS Perry is Normal. AK interval margarette is normal. QRS interval is normal. QT interval is normal. No Q waves. T waves are Normal. No ST changes noted. Clinical impression: Atrial Fibrillation. Interpreted by me. Reviewed by me. 21:01 Rate is 183 beats/min. Rhythm is irregularly irregular. QRS Perry is Normal. AK interval margarette is normal. QRS interval is normal. QT interval is normal. No Q waves. T waves are Normal. Clinical impression: Atrial Fibrillation. Interpreted by me. Reviewed by me. Administered Medications: 19:46 Drug: NS 0.9% (30 ml/kg) 30 ml/kg Route: IV; Rate: bolus; Site: left antecubital; jd3 19:46 Drug: Tylenol 1000 mg Route: PO; jd3 19:47 Drug: Xopenex (levalbuterol) (3) 1.25 mg Route: Inhalation; jd3 19:47 Drug: SOLU-Medrol (methylPrednisoLONE) 125 mg Route: IVP; Site: left antecubital; jd3 23:35 Follow up: Response: No adverse reaction lh3 19:47 Drug: vancoMYCIN 1.5 grams Route: IVPB; Rate: calculated rate; Site: left antecubital; jd3 23:34 Follow up: Response: No adverse reaction; IV Status: Completed infusion lh3 20:24 Drug: Cefepime 1 grams Route: IVPB; Rate: 200 ml/hr; Infused Over: 30 mins; Site: left 3 antecubital; 23:31 Follow up: Response: No adverse reaction; IV Status: Completed infusion lh3 20:24 Drug: Pepcid (famotidine) 20 mg Route: IVP; Site: left antecubital; lh3 23:31 Follow up: Response: No adverse reaction lh3 21:17 Drug: Lopressor (metoprolol) 5 mg Route: IVP; Site: left antecubital; lh3 23:31 Follow up: Response: No adverse reaction lh3 21:17 Drug: Digoxin 0.5 mg Route: IVP; Site: left antecubital; lh3 23:31 Follow up: Response: No adverse reaction lh3 21:18 Drug: Lopressor (metoprolol TARTRATE) 50 mg Route: PO; lh3 23:31 Follow up: Response: No adverse reaction lh3 22:13 Drug: Lopressor (metoprolol) 5 mg Route: IVP; Site: left antecubital; lh3 23:30 Follow up: Response: No adverse reaction lh3 22:50 Drug: Lopressor (metoprolol) 5 mg Route: IVP; Site: left antecubital; lh3 23:30 Follow up: Response: No adverse reaction lh3 23:24 Drug: Sotalol 120 mg Route: PO; 3 Disposition Summary: 06/05/21 21:00 Transfer Ordered Transfer Location: [facility] margarette Reason: Higher level of care margarette Condition: Fair margarette Problem: new margarette Symptoms: have improved margarette Accepting Physician: to ok(06/06/21 00:42) lh3 Diagnosis - Unspecified atrial fibrillation - with rvr margarette - Chronic atrial fibrillation margarette - Fever, unspecified margarette - Abdominal pain, unspecified - upper, hx of Liver Cancer margarette - COPD/ Chronic obstructive pulmonary disease, unspecified margarette Forms: - Medication Reconciliation Form margarette - SBAR form margarette Signatures: Dispatcher [employer] EDBalbir Silver MD MD cha Rittger, Kevin, MD MD kdr Davies, Jonathon, RN RN jd3 Debbie Ennis RN RN lh3 Corrections: (The following items were deleted from the chart) 21: 19:49 CORONAVIRUS+MR.LAB.BRZ ordered. EDAK EDMS 06/06 00:42 06/05 21:00 to ok margarette 3
--- NOTE | 2021-06-05 21:12 | RAD REPORT ---
EXAM DESCRIPTION: US - Abdomen Exam Limited - 06/05/2021 8:40 pm CLINICAL HISTORY: ABD PAIN COMPARISON: Abdomen Exam Limited dated 06/25/2020; Angio Aorta For Dissection dated 06/25/2020 FINDINGS: Thickened gallbladder wall measuring 5 millimeters. No definite gallstones identified. Com mon bile duct is dilated at 10 millimeters. Heterogeneous echogenicity of the liver. Some of the area s are echogenic and rounded complex may represent underlying masses. IMPRESSION: Nonspecific gallbladder wall thickening without evidence of cholelithiasis. The common b ile duct is dilated but the etiology is unclear. A CT is pending. Marked heterogeneity of the liver a s well. Cannot exclude underlying lesions.
[2021-06-05] MEDS ORDERED: METOPROLOL TARTRATE 5 MG/5 ML INJ IV ONE ×3 (21:25→22:59)
[2021-06-05] MEDS ORDERED: DIGOXIN 0.25 MG/ML AMP ONE (21:25)
[2021-06-05] MEDS ORDERED: METOPROLOL XL 50 MG TAB PO ONE (21:25)
[2021-06-05 21:26] LABS: Magnesium 2.2 mg/dL (1.8-2.4)
--- NOTE | 2021-06-05 21:41 | RAD REPORT ---
EXAM DESCRIPTION: CT - Head Brain Wo Cont - 06/05/2021 9:32 pm CLINICAL HISTORY: DIZZINESS COMPARISON: Head Brain Wo Cont dated 10/05/2019; Head Brain Wo Cont dated 04/13/2017 TECHNIQUE: All CT scans are performed using dose optimization technique as appropriate and may inclu de automated exposure control or mA/KV adjustment according to patient size. FINDINGS: No intracranial hemorrhage, hydrocephalus or extra-axial fluid collection.No areas of brai n edema or evidence of midline shift. Bifrontal deep brain stimulators in place. The paranasal sinuses and mastoids are clear. The calvarium is intact. IMPRESSION: No acute intracranial abnormality.
--- NOTE | 2021-06-05 21:51 | RAD REPORT ---
EXAM DESCRIPTION: CT - Chest Abdomen Pelvis W Cont - 06/05/2021 9:32 pm CLINICAL HISTORY: Chest and abdomen pain. COUGH COMPARISON: Angio Aorta For Dissection dated 06/25/2020; Chest Single View dated 06/05/2021 TECHNIQUE: Approximately 100 mL nonionic IV contrast was administered to the patient. All CT scans are performed using dose optimization technique as appropriate and may include automated exposure control or mA/KV adjustment according to patient size. FINDINGS: The lungs are clear.No pleural or pericardial effusion.No intrathoracic adenopathy.Left up per chest wall pacemaker. Pleural plaques. Scattered calcified noncalcified pulmonary nodules which a re unchanged. Numerous masses throughout the liver are identified. No biliary ductal dilatation. Left renal cyst. N o retroperitoneal lymphadenopathy. Atherosclerosis. Diverticulosis without diverticulitis. No bowel obstruction, free air, free fluid or abscess. Normal appendix. No pathologic lymphadenopath y in the abdomen or pelvis. No worrisome osseous finding. IMPRESSION: 1. Innumerable liver lesions concerning for multifocal hepatocellular carcinoma. 2. No acute findings within the chest.
[2021-06-05] MEDS ORDERED: SOTALOL HCL 80 MG TAB ONE (23:40)
[2021-06-06 00:12] LABS: Urine Bacteria 20-50 /HPF (NONE SEEN); Urine RBC <5 /HPF (NONE SEEN)
[2021-06-06 00:49] VITALS: BP 116/96; TEMP 97.6; O2SAT 100
== END 2021-06-06 00:42 ==
LOC: ER 18:14
DX: I48.20 Chronic atrial fibrillation, unspecified (principal); J44.9 Chronic obstructive pulmonary disease, unspecified; R50.9 Fever, unspecified; R10.9 Unspecified abdominal pain; I10 Essential (primary) hypertension; Z85.05 Personal history of malignant neoplasm of liver; Z88.5 Allergy status to narcotic agent; Z20.822 Contact with and (suspected) exposure to COVID-19
CPT/HCPCS: 96365; 93005 ×2; 87040 ×2; 87088; 85025; 87086; 80048; 36415; 82140; 82150; 83735; 82550; 80329; 85610; 80076; 83605; 85730; 84443; 81015; 84484; 82553; 83690; 84145; 83880; 70450; 71260; 74177; 71045; 76705; 96375; 99285; 96366; U0003; Q9967; J1160; J3370; J0692; J7050; J7040; J7030; J2930